=== PATIENT | male | born 1950 | race Caucasian/White ===

== ENCOUNTER → 2019-07-25 09:25 | Outpatient (CLI) | payer MEDICARE, SELFPAY ==
[2019-07-25 10:16] LABS: Add Manual Diff / Slide Review NO; Basophils Absolute Auto 0 /uL (0-100); Basophils Percent Auto 0.6 % (0-2); Eosinophils Absolute Auto 100 /uL (0-450); Eosinophils Percent Auto 1.4 % (2-4); Hematocrit 42.5 % (41-53); Hemoglobin 14.4 g/dL (13.5-17.5); Lymphocytes Absolute Auto 1500 /uL (1100-4500); Lymphocytes Percent Auto 26.2 % (25-40); Mean Corpuscular HGB Conc 33.9 % (30-36); Mean Corpuscular Hemoglobin 31.5 PG (26-34); Mean Corpuscular Volume 92.9 fL (80-100); Monocytes Absolute Auto 500 /uL (0-900); Monocytes Percent Auto 8.9 % (3-14); Neutrophils Absolute Auto 3600 /uL (1500-7000); Neutrophils Percent Auto 62.9 % (50-75); Platelet Count 206 X10^3/uL (150-400); Red Blood Cell Count 4.57 X10^6/uL (4.5-5.9); Red Cell Distribution Width 12.8 % (11.6-14.8); White Blood Cell Count 5.7 X10^3/uL (4.5-11.0)
[2019-07-25 10:25] LABS: Hemoglobin A1C% w Est Avg Glu 5.5 % (4.0-6.0)
[2019-07-25 10:36] LABS: Alanine Aminotransferase 33 IU/L (<50); Albumin 4.9 g/dL (3.5-5.0); Albumin Globulin Ratio 1.5 (1.0-2.8); Alkaline Phosphatase 72 U/L (38-126); Aspartate Aminotransferase 31 IU/L (17-59); BUN Creatinine Ratio 21.7 (6-22); Bilirubin Total 1.1 mg/dL (0.2-1.3); Blood Urea Nitrogen 26 mg/dL (9-20); Carbon Dioxide 29 mmol/L (22-32); Chloride 102 mmol/L (98-107); Cholesterol 212 mg/dL (140-199); Estimated Glomerular Filt Rate > 60.0 mL/min (>60); Globulin 3.2 g/dL (1.7-4.1); Glucose 111 mg/dL (80-110); HDL Cholesterol 43 mg/dL (40-60); HEMOLYSIS < 15 (0-50); LDL Cholesterol Calculated 123 mg/dL (<100); Potassium 4.7 mmol/L (3.4-5.1); Sodium 140 mmol/L (137-145); Total Protein 8.1 g/dL (6.3-8.2); Triglycerides 231 mg/dL (35-150)
[2019-07-25 11:04] LABS: Prostate Specific Antigen Scrn 2.58 ng/mL (0.1-4.0)
== END ==
PROVIDERS: PCP Family Medicine; Visit Provider Family Medicine
DX: Z12.5 Encounter for screening for malignant neoplasm of prostate (principal); Z76.89 Persons encountering health services in other specified circumstances
CPT/HCPCS: 36415; 80053; 80061; 83036; 85025; G0103

== ENCOUNTER → 2020-04-23 14:51 | Outpatient (CLI) | payer MEDICARE, SELFPAY ==
--- NOTE | 2020-04-23 14:53 | DI.RAD.S_ITS ---
PROCEDURE: XR SHOULDER RT MIN 2V INDICATIONS: Right shoulder pain no trauma TECHNIQUE: 3 views of the shoulder were acquired. COMPARISON: None. FINDINGS: Bones: Moderate acromioclavicular joint osteoarthritic changes are seen. No fractures or dislocations. No suspicious bony lesions. Visualized ribs appear intact. Soft tissues: No suspicious soft tissue calcifications. IMPRESSION: Moderate acromioclavicular joint osteoarthritis. No fracture or dislocation. Dictated by: Missael Garcia M.D. on 04/23/2020 at 15:37 Approved by: Missael Garcia M.D. on 04/23/2020 at 15:37
== END ==
PROVIDERS: PCP Family Medicine; Referring Provider Family Medicine; Visit Provider Family Medicine
DX: S43.401A Unspecified sprain of right shoulder joint, initial encounter (principal); M25.511 Pain in right shoulder; M19.011 Primary osteoarthritis, right shoulder
CPT/HCPCS: 73030

== ENCOUNTER → 2020-04-25 07:34 | Outpatient (CLI) | payer MEDICARE, SELFPAY ==
--- NOTE | 2020-04-25 07:34 | DI.MRI.S_ITS ---
PROCEDURE: MR SHOULDER RT WO CON INDICATIONS: Shoulder pain and reduced ROM TECHNIQUE: Noncontrast T1 spin echo and T2 fast spin echo with fat saturation through the shoulder. Patient was unable to tolerate further imaging. COMPARISON: [facility], CR, XR SHOULDER RT MIN 2V, 04/23/2020, 13:51. FINDINGS: Image quality: Excellent. Rotator cuff: Limited evaluation of rotator cuff tendons and muscles shows no definite full-thickness rotator cuff tendon rupture or significant muscle atrophy. Distal supraspinatus tendinosis and low-grade partial-thickness tear is likely present at its insertion on the humeral head. Bones and bursae: No bone marrow contusions or fractures. There is no marrow edema. No fracture or dislocation. Acromioclavicular joint and glenohumeral joint osteoarthritic changes are seen. No significant joint effusion. Capsule and soft tissues: In the absence of intra-articular contrast, there is suggestion of signal abnormality and contour irregularity involving posterior superior labrum with suggestion of adjacent perilabral cyst measures 1.3 x 1.1 cm in size. IMPRESSION: 1. Markedly limited study as above. 2. Suggestion of posterior superior right shoulder labral tear with adjacent 1.3 x 1.1 cm perilabral cyst. 3. No definite full-thickness rotator cuff tendon rupture or significant muscle atrophy. Suggestion of distal supraspinatus tendinosis and low-grade partial-thickness tear. 4. Mild to moderate acromioclavicular joint and glenohumeral joint osteoarthritis. Dictated by: Missael Garcia M.D. on 04/25/2020 at 8:37 Approved by: Missael Garcia M.D. on 04/25/2020 at 8:42
== END ==
PROVIDERS: PCP Family Medicine; Referring Provider Family Medicine; Visit Provider Family Medicine
DX: S43.401A Unspecified sprain of right shoulder joint, initial encounter (principal); M25.511 Pain in right shoulder; M19.011 Primary osteoarthritis, right shoulder
CPT/HCPCS: 73221

== ENCOUNTER → 2020-08-15 15:03 | Outpatient (CLI) | payer MEDICARE, SELFPAY ==
[2020-08-15] MEDS: COVID-19 VACC #1, MRNA(MOD) 100 MCG/0.5 ML VIAL IM (15:10)
== END ==
PROVIDERS: PCP Family Medicine; Visit Provider Internal Medicine
DX: Z23 Encounter for immunization (principal)
CPT/HCPCS: 0011A; 91301

== ENCOUNTER → 2020-09-12 14:14 | Outpatient (CLI) | payer MEDICARE, SELFPAY ==
[2020-09-12] MEDS: COVID-19 VACC #2, MRNA(MOD) 100 MCG/0.5 ML VIAL IM (14:26)
== END ==
PROVIDERS: PCP Family Medicine; Visit Provider Internal Medicine
DX: Z23 Encounter for immunization (principal)
CPT/HCPCS: 0012A; 91301

== ENCOUNTER → 2020-09-21 06:54 | Outpatient (CLI) | payer MEDICARE, SELFPAY ==
[2020-09-21 08:41] LABS: Add Manual Diff / Slide Review NO; Basophils Absolute Auto 0 /uL (0-100); Basophils Percent Auto 0.8 % (0-2); Eosinophils Absolute Auto 200 /uL (0-450); Hematocrit 40.8 % (41-53); Hemoglobin 13.5 g/dL (13.5-17.5); Lymphocytes Absolute Auto 1600 /uL (1100-4500); Lymphocytes Percent Auto 31.9 % (25-40); Mean Corpuscular HGB Conc 33.2 % (30-36); Mean Corpuscular Volume 93.6 fL (80-100); Monocytes Absolute Auto 400 /uL (0-900); Monocytes Percent Auto 8.5 % (3-14); Neutrophils Absolute Auto 2800 /uL (1500-7000); Neutrophils Percent Auto 54.8 % (50-75); Platelet Count 170 X10^3/uL (150-400); Red Blood Cell Count 4.36 X10^6/uL (4.5-5.9); Red Cell Distribution Width 13.7 % (11.6-14.8); White Blood Cell Count 5.2 X10^3/uL (4.5-11.0)
[2020-09-21 09:24] LABS: Alanine Aminotransferase 40 IU/L (<50); Albumin 4.3 g/dL (3.5-5.0); Albumin Globulin Ratio 1.5 (1.0-2.8); Alkaline Phosphatase 69 U/L (38-126); Aspartate Aminotransferase 34 IU/L (17-59); BUN Creatinine Ratio 22.6 (6-22); Bilirubin Total 0.8 mg/dL (0.2-1.3); Blood Urea Nitrogen 28 mg/dL (9-20); Calcium 9.6 mg/dL (8.4-10.2); Carbon Dioxide 24 mmol/L (22-32); Chloride 108 mmol/L (98-107); Cholesterol 141 mg/dL (140-199); Globulin 2.8 g/dL (1.7-4.1); Glucose 109 mg/dL (80-110); HDL Cholesterol 43 mg/dL (40-60); HEMOLYSIS < 15 (0-50); LDL Cholesterol Calculated 78 mg/dL (<100); Potassium 4.6 mmol/L (3.4-5.1); Sodium 140 mmol/L (137-145); Total Protein 7.1 g/dL (6.3-8.2); Triglycerides 102 mg/dL (35-150)
== END ==
PROVIDERS: PCP Family Medicine; Referring Provider Family Medicine; Visit Provider Family Medicine
DX: Z12.5 Encounter for screening for malignant neoplasm of prostate (principal); E78.5 Hyperlipidemia, unspecified; I10 Essential (primary) hypertension
CPT/HCPCS: 36415; 80053; 80061; 85025; G0103

== ENCOUNTER → 2020-10-18 10:26 | Outpatient (CLI) | payer MEDICARE, SELFPAY ==
[2020-10-18 11:24] LABS: Add Manual Diff / Slide Review NO; Basophils Absolute Auto 0 /uL (0-100); Basophils Percent Auto 0.5 % (0-2); Eosinophils Absolute Auto 100 /uL (0-450); Eosinophils Percent Auto 2.1 % (2-4); Hemoglobin 13.7 g/dL (13.5-17.5); Lymphocytes Absolute Auto 1800 /uL (1100-4500); Lymphocytes Percent Auto 27.7 % (25-40); Mean Corpuscular HGB Conc 33.3 % (30-36); Mean Corpuscular Hemoglobin 31.2 PG (26-34); Mean Corpuscular Volume 93.7 fL (80-100); Monocytes Absolute Auto 600 /uL (0-900); Monocytes Percent Auto 8.7 % (3-14); Neutrophils Absolute Auto 4000 /uL (1500-7000); Platelet Count 153 X10^3/uL (150-400); Red Blood Cell Count 4.37 X10^6/uL (4.5-5.9); Red Cell Distribution Width 13.3 % (11.6-14.8); White Blood Cell Count 6.5 X10^3/uL (4.5-11.0)
[2020-10-18 12:09] LABS: TSH w/ Reflex to FT4 2.79 uIU/mL (0.47-4.68)
== END ==
PROVIDERS: PCP Family Medicine; Referring Provider Internal Medicine Cardiovascular Disease; Visit Provider Internal Medicine Cardiovascular Disease
DX: I48.19 Other persistent atrial fibrillation (principal)
CPT/HCPCS: 36415; 84443; 85025

== ENCOUNTER → 2020-10-22 08:58 | Outpatient (CLI) | payer MEDICARE, SELFPAY ==
--- NOTE | 2020-10-22 09:01 | DI.ECHO.S_ITS ---
[facility]---------+ [facility] +---------+ : : [address] : [address] : : : : [id number] : : : : Phone: [phone]---------+ Echocardiogram Report + + :Name: BOBBY SHAW Study Date: 10/22/2020 Height: 74 in : :[facility] ReadingLocation: Weight: 300 lb : : Gender: Male BSA: 2.6 m2 : :: 1950 Age: 70 yrs BP: 136/84 mmHg: :Reason For Study: Atrial fibrillation : :Ordering Physician: : :JR FRAGOSO Performed By: Zach Woods : :Referring: JR FRAGOSO : + + Interpretation Summary 1) Borderline enlarged left ventricle with severely reduced systolic function (EF 25-30%). 2) Mildly enlarged right ventricle with mildly reduced function. 3) No significant valvular abnormalities. 4) No prior Echo available for comparison. Procedure: A two-dimensional transthoracic echocardiogram with color flow and Doppler was performed. The study quality was technically good. There is no prior echocardiogram noted for this patient. The patient was in atrial fibrillation with heart rates between 81-139 bpm during the exam. Left Ventricle: The left ventricle is borderline dilated. Left ventricular systolic function is severely reduced. The ejection fraction is estimated to be 25-30%. There is severe global hypokinesis of the left ventricle. Diastolic function could not be accurately assessed due to atrial fibrillation. Right Ventricle: The right ventricle is mildly dilated. Right ventricular systolic function is mildly reduced. Atria: Both atria are moderately dilated. There is no Doppler evidence for an interatrial shunt. Mitral Valve: There is mild mitral annular calcification. There is mild mitral regurgitation. Aortic Valve: The aortic valve is normal in structure and function. There is no aortic valve stenosis. No aortic regurgitation is present. Tricuspid Valve: The tricuspid valve is normal in structure and function. There is trace tricuspid regurgitation. The right ventricular systolic pressure is estimated to be at least 27 mmHg based on an estimated right atrial pressure of 8 mm Hg. Pulmonic Valve: The pulmonic valve is not well visualized. There is no pulmonic valvular regurgitation. Great Vessels: The aortic root is normal size. The dimensions of the ascending aorta are normal. The IVC is dilated (diameter is greater than 2.1 cm) yet it collapses greater than 50% with a sniff. This suggests a right atrial pressure of 8 mm Hg. Pericardium/ Pleura There is no pericardial effusion. There is no pleural effusion. MMode/2D Measurements & Calculations LVIDd: 5.9 cm LVOT diam: 2.4 cm LVIDs: 5.1 cm Ao root diam: 3.5 cm FS: 14.4 % asc Aorta Diam: 3.6 cm IVSd: 0.89 cm LVPWd: 0.70 cm LV frias. diameter/BSA (cm/m^2): 2.3 LV sys. diameter/BSA (cm/m^2): 2.0 LA A2 area: 23.6 cm2 RA area: 21.5 cm2 LA A4 area: 30.4 cm2 IVC diam: 2.5 cm LA length (vol): 6.6 cm LA vol: 92.6 ml LA vol index: 35.9 ml/m2 RVD1 (basal): 3.9 cm TAPSE: 1.5 cm Doppler Measurements & Calculations Ao V2 max: 126.9 cm/sec LVOT Max Robb: 94.6 cm/sec Ao V2 mean: 102.4 cm/sec LV V1 max P.6 mmHg Ao max P.4 mmHg LV V1 VTI: 19.2 cm Ao mean P.5 mmHg DAREN(I,D): 3.5 cm2 Ao V2 VTI: 25.5 cm DAREN(V,D): 3.5 cm2 sev ratio: 0.75 DAREN indexed to BSA (cm^2/m^2): 1.4 TR max robb: 215.9 cm/sec SV(LVOT): 89.7 ml TR max P.7 mmHg PA V2 max: 118.7 cm/sec PA V2 mean: 82.3 cm/sec PA mean P.0 mmHg PA pr(Accel): 43.7 mmHg Reading Physician:06:59 PM
== END ==
PROVIDERS: PCP Family Medicine; Referring Provider Family Medicine; Visit Provider Family Medicine
DX: I10 Essential (primary) hypertension (principal); I48.91 Unspecified atrial fibrillation; I51.7 Cardiomegaly
CPT/HCPCS: 93306

== ENCOUNTER → 2021-05-13 13:19 | Outpatient (CLI) | payer MEDICARE, SELFPAY ==
--- NOTE | 2021-05-13 | DI.ECHO.S_ITS ---
[facility]---------+ [facility] +---------+ : : [address] : : : : [place] [address] : : : : [id number] : : : : Phone: [phone] +---------+ Echocardiogram Report + + :Name: BOBBY SHAW Study Date: 05/13/2021 Height: 74 in : :[facility] ReadingLocation: Weight: 300 lb : : Gender: Male BSA: 2.6 m2 : :: 1950 Age: 70 yrs BP: 132/89 mmHg: :Reason For Study: SYSTOLIC HEART FAILURE : :Ordering Physician: TONA, : :KERLINE Performed By: Kaylan Ang : :Referring: KERLINE HAAS : + + Interpretation Summary 1) Mildly enlarged left ventricle with mildly reduced systolic function (EF 45-50%). 2) Mildly enlarged right ventricle with normal function. 3) No significant valvular abnormalities. 4) Compared to the Echo done 10/22/2020, LVEF has improved significantly from 25-30% to 45-50% on this study. Procedure: A two-dimensional transthoracic echocardiogram with color flow and Doppler was performed. The study quality was technically adequate. Comparison is made with the echocardiogram of 10/22/2020. The patient was in sinus bradycardia with heart rates between 50-52 bpm during the exam. Left Ventricle: The left ventricle is mildly dilated. There is normal left ventricular wall thickness. Left ventricular systolic function is mildly reduced. The ejection fraction is estimated to be 45-50%. There is mild global hypokinesis of the left ventricle. Right Ventricle: The right ventricle is mildly dilated. The right ventricular systolic function is normal. Atria: The left atrium is moderately dilated. Right atrial size is normal. There is no Doppler evidence for an interatrial shunt. Mitral Valve: The mitral valve is normal in structure and function. There is mild mitral annular calcification. There is no mitral regurgitation noted. Aortic Valve: The aortic valve is trileaflet. The aortic valve opens well. There is no aortic valve stenosis. No aortic regurgitation is present. Tricuspid Valve: The tricuspid valve is normal in structure and function. There is trace tricuspid regurgitation. Pulmonary artery pressures cannot be estimated because of the lack of a measurable TR jet velocity but the IVC suggests a CVP of around 3 mmHg. Pulmonic Valve: The pulmonic valve leaflets are thin and pliable; valve motion is normal. There is trace pulmonic regurgitation. Great Vessels: The aortic root is normal size. The ascending aorta is at the upper limits of normal in size. The IVC is of normal diameter and collapses greater than 50% with a sniff. This suggests a low right atrial pressure of 3 mm Hg. Pericardium/ Pleura There is no pericardial effusion. There is no pleural effusion. MMode/2D Measurements & Calculations LVIDd: 6.4 cm LVOT diam: 2.3 cm LVIDs: 4.9 cm Ao root diam: 3.9 cm FS: 24.7 % asc Aorta Diam: 3.8 cm IVSd: 0.80 cm Ao Arch Diam (Prox Trans): 3.7 cm LVPWd: 0.93 cm LV frias. diameter/BSA (cm/m^2): 2.5 LV sys. diameter/BSA (cm/m^2): 1.9 LA A2 area: 33.4 cm2 RA long axis: 5.4 cm LA A4 area: 28.7 cm2 RA area: 21.0 cm2 LA length (vol): 6.9 cm RA vol: 69.8 ml LA vol: 117.7 ml RA : 27.0 ml/m2 LA vol index: 45.6 ml/m2 IVC diam: 1.5 cm RVD1 (basal): 4.1 cm TAPSE: 2.5 cm Doppler Measurements & Calculations Ao V2 max: 174.5 cm/sec LVOT Max Robb: 75.1 cm/sec Ao V2 mean: 125.4 cm/sec LV V1 max P.3 mmHg Ao max P.2 mmHg LV V1 VTI: 20.1 cm Ao mean P.7 mmHg DAREN(I,D): 2.1 cm2 Ao V2 VTI: 41.5 cm DAREN(V,D): 1.9 cm2 sev ratio: 0.48 DAREN indexed to BSA (cm^2/m^2): 0.81 MV E max robb: 51.6 cm/sec PA V2 max: 121.0 cm/sec MV A max robb: 90.2 cm/sec PA V2 mean: 84.1 cm/sec MV E/A: 0.57 PA mean P.0 mmHg Med Peak E' Robb: 5.4 cm/sec PA pr(Accel): 49.9 mmHg E/E' med: 9.5 Lat Peak E' Robb: 8.2 cm/sec E/E' lat: 6.3 E/e' average: 7.9 MV dec time: 0.34 sec SV(LVOT): 87.1 ml Reading Physician:03:20 PM
== END ==
PROVIDERS: PCP Family Medicine; Referring Provider Internal Medicine Cardiovascular Disease; Visit Provider Internal Medicine Cardiovascular Disease
DX: I50.20 Unspecified systolic (congestive) heart failure (principal)
CPT/HCPCS: 93306

== ENCOUNTER → 2021-07-01 08:04 | Outpatient (CLI) | payer MEDICARE, SELFPAY ==
[2021-07-01 12:21] LABS: COVID19 -Nasal RAPID Negative (Negative)
== END ==
PROVIDERS: PCP Family Medicine; Visit Provider Nurse Practitioner Family
DX: Z20.822 Contact with and (suspected) exposure to COVID-19 (principal)
CPT/HCPCS: 87635; C9803

== ENCOUNTER → 2021-07-02 09:51 | Outpatient (CLI) | payer MEDICARE, SELFPAY ==
--- NOTE | 2021-07-02 | DI.NM.S_ITS ---
PROCEDURE: NM LAZARO PERF SPECT R&S PHARM Rest and pharmacological stress myocardial perfusion SPECT with gated imaging and ejection fraction RADIOPHARMACEUTICAL: 25.8 mCi Tc-99m tetrafosmin IV at rest and 25.2 mCi Tc-99m tetrafosmin IV at peak effect of pharmacological stress. Nty-rlc-zskwsbsf was performed. INDICATIONS: Unspecified systolic (congestive) heart failure TECHNIQUE: Radiopharmaceutical was injected at peak stress test, and also at rest. SPECT images were obtained. SPECT myocardial perfusion images were displayed in short axis, horizontal long axis, and vertical long axis views. Gated images were reviewed using Neitui software. COMPARISON: None. CARDIAC STRESS: A pharmacologic stress test was performed under the supervision of an attending staff, using an infusion of lexiscan 0.4mg IV X. Hemodynamic data: There is normal blood pressure and heart rate response to pharmacologic stress. Symptoms: The patient denied anginal chest pain. Aminophylline: none EKG: Sinus rhythm with non-specific ST changes at rest. No diagnostic changes of ischemia with lexiscan; no ectopy. FINDINGS: Raw data: There is good myocardial uptake of radiotracer. No significant motion artifacts. Uldl-oz-zkjmj ratio is 0.36 (normal is less than 0.38 for tetrafosmin tracer). Left ventricle function: Gated images demonstrate normal left ventricular wall thickening. No segmental wall motion abnormalities. No transient ischemic dilation; TID is 0.98 (normal less than 1.3). Left ventricle resting end diastolic volume is 160 mL. Left ventricle stress ejection fraction is 66%; normal range is above 45%. Myocardial perfusion: Mild distal anterior wall defect at rest that improves with stress and resolves with prone imaging, suggesting artifact. No ischemia or infarction. IMPRESSION: Low risk, probably normal pharmaceutical stress test 1) No perfusion evidence of ischemia or infarction. 2) Enlarged left ventricle (LVEDV 160cc) with normal wall motion and normal systolic function (EF post stress 66%). 3) No ECG evidence of ischemia with stress. 4) No angina during the study. 5) Reduced exercise capacity (5.4 METs). Since the patient is on metoprolol and target heart rate not reached, study switched to pharmaceutical nuclear stress test. Dictated by: Jj Haas MD on 07/03/2021 at 16:46 Approved by: Jj Haas MD on 07/03/2021 at 16:50
== END ==
PROVIDERS: PCP Family Medicine; Referring Provider Internal Medicine Cardiovascular Disease; Visit Provider Internal Medicine Cardiovascular Disease
DX: I50.20 Unspecified systolic (congestive) heart failure (principal)
CPT/HCPCS: 78452; 93017; A9502; J2785

== ENCOUNTER → 2021-08-12 08:39 | Outpatient (CLI) | payer MEDICARE, SELFPAY ==
[2021-08-12 09:08] LABS: Add Manual Diff / Slide Review NO; Basophils Absolute Auto 0 /uL (0-100); Basophils Percent Auto 0.6 % (0-2); Eosinophils Absolute Auto 200 /uL (0-450); Eosinophils Percent Auto 3.1 % (2-4); Hematocrit 37.9 % (41-53); Hemoglobin 12.7 g/dL (13.5-17.5); Lymphocytes Absolute Auto 1400 /uL (1100-4500); Lymphocytes Percent Auto 24.6 % (25-40); Mean Corpuscular HGB Conc 33.6 % (30-36); Mean Corpuscular Hemoglobin 31.6 PG (26-34); Mean Corpuscular Volume 94.2 fL (80-100); Monocytes Absolute Auto 500 /uL (0-900); Monocytes Percent Auto 9.5 % (3-14); Neutrophils Absolute Auto 3600 /uL (1500-7000); Neutrophils Percent Auto 62.2 % (50-75); Platelet Count 168 X10^3/uL (150-400); Red Blood Cell Count 4.02 X10^6/uL (4.5-5.9); Red Cell Distribution Width 12.9 % (11.6-14.8); White Blood Cell Count 5.8 X10^3/uL (4.5-11.0)
[2021-08-12 09:19] LABS: BUN Creatinine Ratio 20.9 (6-22); Blood Urea Nitrogen 32 mg/dL (9-20); Calcium 9.6 mg/dL (8.4-10.2); Carbon Dioxide 24 mmol/L (22-32); Chloride 108 mmol/L (98-107); Cholesterol 175 mg/dL (140-199); Estimated Glomerular Filt Rate 45.4 mL/min (>60); Glucose 110 mg/dL (80-110); HDL Cholesterol 49 mg/dL (40-60); HEMOLYSIS < 15 (0-50); LDL Cholesterol Calculated 93 mg/dL (<100); Sodium 139 mmol/L (137-145); Triglycerides 167 mg/dL (35-150)
== END ==
PROVIDERS: PCP Family Medicine; Referring Provider Internal Medicine Cardiovascular Disease; Visit Provider Internal Medicine Cardiovascular Disease
DX: E78.5 Hyperlipidemia, unspecified (principal); I10 Essential (primary) hypertension; Z79.01 Long term (current) use of anticoagulants
CPT/HCPCS: 36415; 80048; 80061; 85025

== ENCOUNTER → 2021-08-15 14:23 | Outpatient (CLI) | payer MEDICARE, SELFPAY ==
--- NOTE | 2021-08-15 | DI.CT.S_ITS ---
PROCEDURE: CT ANGIO CHEST INDICATIONS: Other persistent atrial fibrillation TECHNIQUE: After the administration of intravenous contrast, 3 mm thick sections acquired from the pulmonary apices to the posterior costophrenic angles. 3-dimensional maximum intensity projection (MIP) coronal reformats were then acquired parallel to the pulmonary veins. For radiation dose reduction, the following was used: automated exposure control, adjustment of mA and/or kV according to patient size. COMPARISON: None. FINDINGS: Image quality: Excellent. Pulmonary veins: 2 right and 2 left pulmonary veins are identified. * Right superior pulmonary vein: 2.1 cm diameter, 0.9 cm from ostium to 1st order branch. * Right inferior pulmonary vein: 2.3 cm diameter, 0.6 cm from ostium to 1st order branch. * Left superior pulmonary vein: 2.4 cm diameter, 6.0 cm from ostium to 1st order branch. * Left inferior pulmonary vein: 2.4 cm diameter, 3.5 cm from ostium to 1st order branch. * Supernumerary pulmonary veins: none. Lungs and pleura: No evidence of pneumonia or edema. Mild bibasilar pulmonary scarring. No pleural effusions or pneumothorax. Central and peripheral airways are patent. Mediastinum: Heart size is normal, without pericardial effusion. There is mild calcification of the coronary vasculature. No mediastinal or hilar adenopathy. Thoracic aorta and pulmonary arteries are normal in caliber and enhancement. Esophagus is normal in caliber, without hiatal hernia. Bones and chest wall: No suspicious bony lesions. Ribs and thoracic spine appear intact throughout. No axillary or supraclavicular adenopathy. Thyroid gland is within normal limits . Abdomen: Visualized upper abdominal solid organs appear normal in the early arterial phase of enhancement. IMPRESSION: 1. Conventional pulmonary venous anatomy. 2. Coronary artery disease. Dictated by: Kingsley Stanley M.D. on 08/15/2021 at 15:34 Approved by: Kingsley Stanley M.D. on 08/15/2021 at 17:00
== END ==
PROVIDERS: PCP Family Medicine; Referring Provider Physician Assistant; Visit Provider Physician Assistant
DX: I48.19 Other persistent atrial fibrillation (principal); I25.10 Atherosclerotic heart disease of native coronary artery without angina pectoris
CPT/HCPCS: 71275; Q9967

== ENCOUNTER → 2021-09-02 07:05 | Outpatient (CLI) | payer MEDICARE, SELFPAY ==
[2021-09-02 08:42] LABS: BUN Creatinine Ratio 21.4 (6-22); Blood Urea Nitrogen 31 mg/dL (9-20); Calcium 9.4 mg/dL (8.4-10.2); Carbon Dioxide 22 mmol/L (22-32); Chloride 113 mmol/L (98-107); Estimated Glomerular Filt Rate 48.3 mL/min (>60); Glucose 110 mg/dL (80-110); HEMOLYSIS < 15 (0-50); Potassium 4.6 mmol/L (3.4-5.1); Sodium 141 mmol/L (137-145)
== END ==
PROVIDERS: PCP Family Medicine; Referring Provider Internal Medicine Cardiovascular Disease; Visit Provider Internal Medicine Cardiovascular Disease
DX: I10 Essential (primary) hypertension (principal)
CPT/HCPCS: 36415; 80048

== ENCOUNTER → 2021-10-07 07:14 | Outpatient (CLI) | payer MEDICARE, SELFPAY ==
[2021-10-07 08:58] LABS: Hemoglobin A1C% w Est Avg Glu 5.9 % (4.0-6.0)
[2021-10-07 09:17] LABS: Alanine Aminotransferase 35 IU/L (<50); Albumin Globulin Ratio 1.4 (1.0-2.8); Alkaline Phosphatase 71 U/L (38-126); Aspartate Aminotransferase 29 IU/L (17-59); BUN Creatinine Ratio 18.2 (6-22); Blood Urea Nitrogen 26 mg/dL (9-20); Calcium 9.4 mg/dL (8.4-10.2); Carbon Dioxide 24 mmol/L (22-32); Chloride 112 mmol/L (98-107); Cholesterol 150 mg/dL (140-199); Estimated Glomerular Filt Rate 48.9 mL/min (>60); Globulin 2.8 g/dL (1.7-4.1); Glucose 107 mg/dL (80-110); HDL Cholesterol 39 mg/dL (40-60); HEMOLYSIS < 15 (0-50); LDL Cholesterol Calculated 74 mg/dL (<100); Potassium 4.6 mmol/L (3.4-5.1); Sodium 142 mmol/L (137-145); Total Protein 6.8 g/dL (6.3-8.2); Triglycerides 184 mg/dL (35-150)
== END ==
PROVIDERS: PCP Family Medicine; Referring Provider Family Medicine; Visit Provider Family Medicine
DX: I48.20 Chronic atrial fibrillation, unspecified (principal); I10 Essential (primary) hypertension; N28.9 Disorder of kidney and ureter, unspecified
CPT/HCPCS: 36415; 80053; 80061; 83036

== ENCOUNTER → 2021-11-27 07:14 | Outpatient (CLI) | payer MEDICARE, SELFPAY ==
[2021-11-27 09:05] LABS: BUN Creatinine Ratio 18.1 (6-22); Blood Urea Nitrogen 26 mg/dL (9-20); Calcium 9.1 mg/dL (8.4-10.2); Carbon Dioxide 24 mmol/L (22-32); Chloride 109 mmol/L (98-107); Estimated Glomerular Filt Rate 52 mL/min (>60); Glucose 106 mg/dL (80-110); HEMOLYSIS < 15 (0-50); Potassium 4.6 mmol/L (3.4-5.1); Sodium 139 mmol/L (137-145)
== END ==
PROVIDERS: PCP Family Medicine; Referring Provider Physician Assistant Medical; Visit Provider Physician Assistant Medical
DX: I48.19 Other persistent atrial fibrillation (principal)
CPT/HCPCS: 36415; 80048

== ENCOUNTER → 2022-06-05 07:16 | Outpatient (CLI) | payer MEDICARE, SELFPAY ==
[2022-06-05 10:02] LABS: BUN Creatinine Ratio 25.1 (6-22); Blood Urea Nitrogen 43 mg/dL (9-20); Calcium 9.4 mg/dL (8.4-10.2); Carbon Dioxide 21 mmol/L (22-32); Chloride 107 mmol/L (98-107); Estimated Glomerular Filt Rate 43 mL/min (>60); Glucose 101 mg/dL (80-110); HEMOLYSIS < 15 (0-50); Sodium 139 mmol/L (137-145)
== END ==
PROVIDERS: PCP Family Medicine; Referring Provider Physician Assistant Medical; Visit Provider Physician Assistant Medical
DX: I48.19 Other persistent atrial fibrillation (principal)
CPT/HCPCS: 36415; 80048

== ENCOUNTER → 2022-08-25 07:15 | Outpatient (CLI) | payer MEDICARE, SELFPAY ==
[2022-08-25 08:34] LABS: Hemoglobin A1C% w Est Avg Glu 5.8 % (4.0-6.0)
[2022-08-25 08:59] LABS: Alanine Aminotransferase 38 IU/L (<50); Albumin 4.1 g/dL (3.5-5.0); Albumin Globulin Ratio 1.4 (1.0-2.8); Alkaline Phosphatase 78 U/L (38-126); Aspartate Aminotransferase 27 IU/L (17-59); BUN Creatinine Ratio 17.2 (6-22); Blood Urea Nitrogen 23 mg/dL (9-20); Calcium 9.2 mg/dL (8.4-10.2); Carbon Dioxide 23 mmol/L (22-32); Chloride 106 mmol/L (98-107); Cholesterol 145 mg/dL (140-199); Estimated Glomerular Filt Rate 57 mL/min (>60); Globulin 2.9 g/dL (1.7-4.1); Glucose 102 mg/dL (80-110); HDL Cholesterol 46 mg/dL (40-60); HEMOLYSIS < 15 (0-50); LDL Cholesterol Calculated 50 mg/dL (<100); Potassium 4.7 mmol/L (3.4-5.1); Sodium 139 mmol/L (137-145); Triglycerides 244 mg/dL (35-150)
== END ==
PROVIDERS: PCP Family Medicine; Referring Provider Family Medicine; Visit Provider Family Medicine
DX: E78.5 Hyperlipidemia, unspecified (principal); I10 Essential (primary) hypertension; I48.20 Chronic atrial fibrillation, unspecified
CPT/HCPCS: 36415; 80053; 80061; 83036

== ENCOUNTER 2022-09-24 17:29 | Emergency (ER) | payer MEDICARE, SELFPAY ==
[2022-09-24] VITALS (9 sets, daily range): BP systolic 106–126; BP diastolic 56–77; PULSE 71–81; RESP 16–22; TEMP 36.9; O2SAT 94–98; BMI 37.8
--- NOTE | 2022-09-24 18:23 | ED.ALLEREA ---
HPI - Allergic Reaction General Chief complaint: Allergic Reaction Stated complaint: probable allergic reaction Time Seen by Provider: 09/24/22 18:23 Source: patient and family () Mode of arrival: Ambulatory Limitations: no limitations History of Present Illness HPI narrative: Patient is a 72-year-old male who arrives in the emergency department for what he was thinking was a possible allergic reaction to the pills that he took for his colonoscopy prep. He is just had a liquid diet for the past 24 hours. He is not been on his apixaban for the past 3 days preparing for the colonoscopy tomorrow. He took the pills earlier today. He stated that right after he took the medication did not feel right. He felt like he could not take a full deep breath. Started to have tremors and convulsions. In the triage room he was not having any chest pain or shortness of breath. At the time my initial evaluation the patient was diaphoretic. Stated he just generally did not feel very well. Is very nauseous. No shortness of breath or chest pain. is at bedside and provided HPI Related Data Home Medications Medication Instructions Recorded Confirmed amiodarone 100 mg tablet 100 mg PO DAILY 09/17/21 09/17/21 apixaban 5 mg tablet 5 mg PO BID 09/17/21 09/17/21 atorvastatin 40 mg tablet 40 mg PO DAILY 09/17/21 09/17/21 metoprolol succinate 25 mg 50 mg PO .QHS 09/17/21 09/17/21 tablet,extended release 24 hr pantoprazole 40 mg tablet,delayed 40 mg PO DAILY 09/17/21 09/17/21 release spironolactone 25 mg tablet 25 mg PO DAILY 09/17/21 09/17/21 Previous Rx's Medication Instructions Recorded lisinopril 10 mg tablet See Rx Instructions .Route 04/01/22 .COMPLEX #90 tabs sodium sul 1.479 gram-potas ch See Rx Instructions PO PER PKG DIR 08/20/22 0.188 gram-magnes sul 0.225 gram #24 tabs tablet (Sutab) Allergies Allergy/AdvReac Type Severity Reaction Status Date / Time No Known Drug Allergies Allergy Verified 09/17/21 09:36 Review of Systems Review of Systems ROS Unobtainable: All systems reviewed & are unremarkable except as noted in HPI and below Patient History Medical History Atrial fibrillation Hearing loss Hyperlipidemia Hypertension Nontraumatic type 1 superior labral txpiulsw-xy-tyvtqarxy (SLAP) tear of right shoulder Renal insufficiency Sprain of right shoulder Vision disorder Well adult exam Surgical History Anesthesia History of appendectomy (~2000) History of knee surgery (~2004) Family History (Updated 07/24/19 @ 19:48 by Mari Dean) Father Diabetes mellitus History of heart disease Hyperlipidemia Hypertension Mother Cancer Sister History of heart disease Social History Smoking Status: Former smoker second hand exposure: No alcohol intake: current (4-5+ drinks /weekly) substance use type: marijuana (Once or twice a year. ) Smoking Status: Former smoker alcohol intake frequency: holidays/special occasions only Substance Use Type: marijuana Exam Initial Vital Signs Initial Vital Signs: Vital Signs Temperature 98.4 F 09/24/22 17:51 Pulse Rate 81 09/24/22 17:51 Respiratory Rate 22 09/24/22 17:51 Blood Pressure 125/65 09/24/22 17:51 Pulse Oximetry 98 09/24/22 17:51 Oxygen Delivery Method Room Air 09/24/22 17:51 Const General: diaphoretic and ill appearing HENMT Head: normal to inspection and normocephalic Resp Effort & Inspection: normal respiratory effort Auscultation: clear to auscultation bilaterally Cardio Rate: regular rate Rhythm: regular rhythm GI Inspection: normal to inspection Palpation: soft and No tender Skin General: pallor Neuro General: patient alert, patient awake and moves all extremities Extrem General: normal to inspection and capillary refill normal Course Orders Ordered: ED Orders 09/24/22 18:25 XR chest 1V Stat Complete Blood Count AUTO DIFF Stat Comprehensive Metabolic Panel Stat Lactate (Lactic Acid) Stat Magnesium Stat Phosphorous Stat Troponin & CK Cardiac Panel Stat EKG-12 Lead Stat Discontinued Medications Sodium Chloride (Normal Saline 0.9%) 1,000 mls @ 1,000 mls/hr IV BOLUS ONE Stop: 09/24/22 19:23 Last Infusion: 09/24/22 19:50 Dose: 0 mls/hr Documented By: Admin: 09/24/22 18:50 Dose: 1,000 mls/hr Documented By: CTS Vital Signs Vital signs: Vital Signs - 8 hr 09/24/22 18:45 09/24/22 18:50 09/24/22 18:53 Pulse Rate 74 72 Respiratory Rate 16 Blood Pressure 106/77 119/58 L Pulse Oximetry 98 94 Oxygen Delivery Method Room Air 09/24/22 18:53 09/24/22 19:00 09/24/22 19:00 Pulse Rate 73 71 Respiratory Rate 16 Blood Pressure 126/60 Pulse Oximetry 95 98 Oxygen Delivery Method 09/24/22 19:30 09/24/22 19:31 09/24/22 19:31 Pulse Rate 72 73 Respiratory Rate Blood Pressure 125/58 L Pulse Oximetry 96 96 Oxygen Delivery Method 09/24/22 20:00 09/24/22 20:01 09/24/22 20:01 Pulse Rate 76 77 Respiratory Rate Blood Pressure 118/56 L Pulse Oximetry 96 96 Oxygen Delivery Method MDM - Allergic Reaction Lab Data Attestation: I reviewed the patient's lab results. 09/24/22 18:25 09/24/22 18:25 Labs: Lab Results 09/24/22 09/24/22 09/24/22 Range/Units 18:25 18:25 18:25 WBC 7.8 (4.5-11.0) X10^3/uL RBC 4.39 L (4.5-5.9) X10^6/uL Hgb 13.7 (13.5-17.5) g/dL Hct 40.7 L (41-53) % MCV 92.8 (80-100) fL MCH 31.3 (26-34) PG MCHC 33.7 (30-36) % RDW 13.5 (11.6-14.8) % Plt Count 191 (150-400) X10^3/uL Neut % (Auto) 81.7 H (50-75) % Lymph % (Auto) 16.0 L (25-40) % [place] % (Auto) 1.4 L (3-14) % Eos % (Auto) 0.6 L (2-4) % Baso % (Auto) 0.3 (0-2) % Neut # (Auto) 6400 (4080-6427) /uL Lymph # (Auto) 1300 (5116-1465) /uL [place] # (Auto) 100 (0-900) /uL Eos # (Auto) 0 (0-450) /uL Baso # (Auto) 0 (0-100) /uL Sodium 139 (137-145) mmol/L Potassium 4.8 (3.4-5.1) mmol/L Chloride 107 (98-107) mmol/L Carbon Dioxide 20 L (22-32) mmol/L BUN 27 H (9-20) mg/dL Creatinine 1.38 H (0.66-1.25) mg/dL Estimated GFR 55 L (>60) mL/min BUN/Creatinine Ratio 19.6 (6-22) Glucose 96 (80-110) mg/dL Lactate 1.9 (0.7-2.1) mmol/L Calcium 9.7 (8.4-10.2) mg/dL Phosphorus 3.2 (2.3-3.7) mg/dL Magnesium 1.9 (1.6-2.3) mg/dL Total Bilirubin 1.7 H (0.2-1.3) mg/dL AST 33 (17-59) IU/L ALT 38 (<50) IU/L Alkaline Phosphatase 87 (38-126) U/L Total Creatine Kinase 224 H (55-170) U/L CK-MB (CK-2) 2.32 (<2.37) ng/mL CK-MB (CK-2) Rel Index 1.0 L (1.5-5.0) % Troponin I < 0.012 (0.01-0.034) ng/mL Total Protein 8.0 (6.3-8.2) g/dL Albumin 4.7 (3.5-5.0) g/dL Globulin 3.3 (1.7-4.1) g/dL Albumin/Globulin Ratio 1.4 (1.0-2.8) Point of Care Testing Glucose POC 110 Imaging Data Chest x-ray: Radiologist's Impression: PROCEDURE:? XR CHEST 1V ? INDICATIONS:? chest pain ? TECHNIQUE:? One view of the chest was acquired.? ? COMPARISON:? None. ? FINDINGS:? ? Surgical changes and devices:? None.? ? Lungs and pleura:? Lungs are clear.? No pleural effusions or pneumothorax.? ? Mediastinum:? Mediastinal contours appear normal.? Heart size is enlarged. ? Bones and chest wall:? No suspicious bony lesions.? Overlying soft tissues appear unremarkable.? ? IMPRESSION:? No acute pulmonary process. ? ECG Data Attestation: I personally reviewed and interpreted this ECG as follows: Interpretation: Sinus rhythm Ventricular rate is 73 Normal axis Normal QRS Normal QTC No ST T wave changes MDM Narrative Medical decision making narrative: Upon my initial evaluation the patient looked very poor. Was diaphoretic and pale. Much of the HPI came from the patient's . It appears that all of his symptoms started after he took the pills to use for the prep for the colonoscopy. It also was revealed that the patient has not had anything to eat for the past day just liquid per the instructions in preparation for the colonoscopy. His initial blood sugar was 77. He was given oral sugar. This improved his glucose. Is given fluids. After this the patient stated that he felt much better. His color had returned to his face. Was no longer diaphoretic. Not tachycardic. Not hypotensive. His labs are unremarkable. Unsure as to whether not the patient was having a actual allergic reaction to the pills for the prep or if he was hypoglycemic because of his lack of oral intake. Either way the patient has improved clinically and stated that he felt well enough to go home. He has had a couple of loose bowel movements here in the ER which is not unexpected given the medication that he took. He is already called to cancel the colonoscopy for tomorrow which I do not think is unreasonable given his presentation today. I advised that he return to taking all of his medications as directed. Encouraged him to increase his fluid intake. He was given return precautions. He expressed understanding and agreement. Discharge Plan Departure Patient Disposition: Home Clinical Impression: Hypoglycemia Instructions: Hypoglycemia Activity Restrictions/Additional Instructions: I would recommend that you do not proceed with the colonoscopy tomorrow and contact the provider to let them know that this should be rescheduled. I am not 100% convinced that you had an allergic reaction to the medication you took for the prep but it is a possibility. Since you were not having the colonoscopy tomorrow I would recommend that you start all of your medications as directed. Return to the emergency department for new symptoms. Prescriptions: No Action lisinopril 10 mg tablet See Rx Instructions .ROUTE .COMPLEX Qty: 90 1RF Dose Instruction: TAKE ONE TABLET BY MOUTH ONE TIME DAILY. Rx Instructions: TAKE ONE TABLET BY MOUTH ONE TIME DAILY. Sutab 1.479-0.188- 0.225 gram tablet See Rx Instructions PO PER PKG DIR Qty: 24 0RF Rx Instructions: Take as directed by Physician metoprolol succinate 25 mg tablet extended release 24 hr 50 mg PO .QHS amiodarone 100 mg tablet 100 mg PO DAILY apixaban 5 mg tablet 5 mg PO BID atorvastatin 40 mg tablet 40 mg PO DAILY pantoprazole 40 mg tablet,delayed release (DR/EC) 40 mg PO DAILY spironolactone 25 mg tablet 25 mg PO DAILY Rx Instructions: Take 0.5mg tabs 12.5 mg total PO daily Referrals: Maurilio Salazar, [Primary Care Provider] - Stand Alone Forms: Patient Portal/API
--- NOTE | 2022-09-24 18:25 | DI.RAD.S_ITS ---
PROCEDURE: XR CHEST 1V INDICATIONS: chest pain TECHNIQUE: One view of the chest was acquired. COMPARISON: None. FINDINGS: Surgical changes and devices: None. Lungs and pleura: Lungs are clear. No pleural effusions or pneumothorax. Mediastinum: Mediastinal contours appear normal. Heart size is enlarged. Bones and chest wall: No suspicious bony lesions. Overlying soft tissues appear unremarkable. IMPRESSION: No acute pulmonary process. Dictated by: Apolonia Aguilar M.D. on 09/24/2022 at 19:19 Approved by: Apolonia Aguilar M.D. on 09/24/2022 at 19:19
[2022-09-24 18:33] LABS: Add Manual Diff / Slide Review NO; Basophils Absolute Auto 0 /uL (0-100); Basophils Percent Auto 0.3 % (0-2); Eosinophils Absolute Auto 0 /uL (0-450); Eosinophils Percent Auto 0.6 % (2-4); Hematocrit 40.7 % (41-53); Hemoglobin 13.7 g/dL (13.5-17.5); Lymphocytes Absolute Auto 1300 /uL (1100-4500); Mean Corpuscular HGB Conc 33.7 % (30-36); Mean Corpuscular Hemoglobin 31.3 PG (26-34); Mean Corpuscular Volume 92.8 fL (80-100); Monocytes Absolute Auto 100 /uL (0-900); Monocytes Percent Auto 1.4 % (3-14); Neutrophils Absolute Auto 6400 /uL (1500-7000); Neutrophils Percent Auto 81.7 % (50-75); Platelet Count 191 X10^3/uL (150-400); Red Blood Cell Count 4.39 X10^6/uL (4.5-5.9); Red Cell Distribution Width 13.5 % (11.6-14.8); White Blood Cell Count 7.8 X10^3/uL (4.5-11.0)
--- NOTE | 2022-09-24 18:33 | PC.NURSE ---
Pt called on red phone stating that pt was feeling dizzy and lightheaded. Pt was started on colonoscopy prep for his procedure tomorrow. states that he took one dose of his prep and started with dizziness and shakiness at home and not feeling well so she brought him in. Pt was wheeled to the [facility] and appeared to be having a syncopal episode. Eyes rolled back, diaphoretic, unresponsive to verbal x [address] Alvarez at bedside. Pt came to consciousness within 20 seconds and states he was nauseated. Glucose 77. Sugar packet given and pt transferred into stretcher. Feeling better and back to baseline. BP 106/77 HR 77 NSR 98% RA. Pt OOB with assist to bathroom for BM from colon prep. IVF started. Pt resting in bed and states hes exhausted.
[2022-09-24 18:46] LABS: Alanine Aminotransferase 38 IU/L (<50); Albumin 4.7 g/dL (3.5-5.0); Albumin Globulin Ratio 1.4 (1.0-2.8); Alkaline Phosphatase 87 U/L (38-126); Aspartate Aminotransferase 33 IU/L (17-59); BUN Creatinine Ratio 19.6 (6-22); Bilirubin Total 1.7 mg/dL (0.2-1.3); Blood Urea Nitrogen 27 mg/dL (9-20); Calcium 9.7 mg/dL (8.4-10.2); Carbon Dioxide 20 mmol/L (22-32); Chloride 107 mmol/L (98-107); Creatine Kinase 224 U/L (55-170); Estimated Glomerular Filt Rate 55 mL/min (>60); Globulin 3.3 g/dL (1.7-4.1); Glucose 96 mg/dL (80-110); HEMOLYSIS 23 (0-50); Magnesium 1.9 mg/dL (1.6-2.3); Phosphorous 3.2 mg/dL (2.3-3.7); Potassium 4.8 mmol/L (3.4-5.1); Sodium 139 mmol/L (137-145)
[2022-09-24] MEDS: SODIUM CHLORIDE 0.9% 1,000 ML 1000 ML IV (18:50)
[2022-09-24 18:57] LABS: Troponin I < 0.012 ng/mL (0.01-0.034)
[2022-09-24 19:01] LABS: Creatine Kinase MB 2.32 ng/mL (<2.37)
[2022-09-24 19:15] LABS: Lactate (Lactic Acid) 1.9 mmol/L (0.7-2.1)
--- NOTE | 2022-09-24 20:17 | PC.NURSE ---
pt ambulated around room without any c/o dizziness gait steady
== END 2022-09-24 20:19 | disposition home or self-care (01) ==
PROVIDERS: Emergency Provider Emergency Medicine; PCP Family Medicine
DX: E16.2 Hypoglycemia, unspecified (principal); R07.9 Chest pain, unspecified; Z79.899 Other long term (current) drug therapy
CPT/HCPCS: 36415; 71045; 80053; 82550; 82553; 82962; 83605; 83735; 84100; 84484; 85025; 93005; 99284

== ENCOUNTER → 2024-01-13 07:20 | Outpatient (CLI) | payer MEDICARE, SELFPAY ==
[2024-01-13 08:02] LABS: Add Manual Diff / Slide Review NO; Basophils Absolute Auto 200 /uL (0-100); Basophils Percent Auto 4.2 % (0-2); Eosinophils Absolute Auto 100 /uL (0-450); Hematocrit 40.5 % (41-53); Hemoglobin 13.7 g/dL (13.5-17.5); Lymphocytes Absolute Auto 1200 /uL (1100-4500); Mean Corpuscular HGB Conc 33.9 % (30-36); Mean Corpuscular Hemoglobin 31.8 PG (26-34); Mean Corpuscular Volume 93.7 fL (80-100); Monocytes Absolute Auto 400 /uL (0-900); Monocytes Percent Auto 7.3 % (3-14); Neutrophils Absolute Auto 3000 /uL (1500-7000); Neutrophils Percent Auto 61.5 % (50-75); Platelet Count 196 X10^3/uL (150-400); Red Blood Cell Count 4.32 X10^6/uL (4.5-5.9); Red Cell Distribution Width 13.4 % (11.6-14.8); White Blood Cell Count 4.8 X10^3/uL (4.5-11.0)
--- NOTE | 2024-01-13 08:07 | EKG_ITS ---
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
[2024-01-13 08:15] LABS: Appearance Urine UA CLEAR; Bilirubin Urine UA NEGATIVE (NEGATIVE); Color Urine UA YELLOW; Glucose Urine UA NEGATIVE (Negative); Ketones Urine UA NEGATIVE (NEGATIVE); Leukocyte Esterase Urine UA NEGATIVE (NEGATIVE); Nitrite Urine UA NEGATIVE (Negative); Occult Blood Urine UA NEGATIVE (Negative); Protein Urine UA NEGATIVE (Negative); Specific Gravity Urine UA 1.015 (1.000-1.035); Urobilinogen Urine UA 0.2 E.U./dL (0.2)
[2024-01-13 08:21] LABS: BUN Creatinine Ratio 22.5 (6-22); Blood Urea Nitrogen 27 mg/dL (9-20); Calcium 9.8 mg/dL (8.4-10.2); Carbon Dioxide 23 mmol/L (22-32); Chloride 111 mmol/L (98-107); Estimated Glomerular Filt Rate > 60 mL/min (>60); Glucose 112 mg/dL (80-110); HEMOLYSIS < 15 (0-50); Potassium 4.7 mmol/L (3.4-5.1); Sodium 138 mmol/L (137-145)
[2024-01-13 08:38] LABS: Bacteria Urine Occasional (0-1); Culture Indicated Urine Specimen Cultured; Hyaline Casts Urine 0-1/LPF; RBC Urine None Seen (0-5/HPF); Squamous Epithelial Cell Urine 5-10 /HPF (0-5/HPF); Urine Volume 10mL (spun); WBC Urine 1-5/HPF (0-5/HPF)
== END ==
LOC: RESP 07:25
PROVIDERS: PCP Family Medicine; Referring Provider Orthopaedic Surgery; Visit Provider Orthopaedic Surgery
DX: Z01.818 Encounter for other preprocedural examination (principal); R73.9 Hyperglycemia, unspecified; Z01.812 Encounter for preprocedural laboratory examination; N39.0 Urinary tract infection, site not specified
CPT/HCPCS: 36415; 80048; 81001; 83036; 85025; 87086; 93005

== ENCOUNTER → 2024-03-04 07:51 | Outpatient (CLI) | payer MEDICARE, SELFPAY ==
--- NOTE | 2024-03-04 08:24 | EKG_ITS ---
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
[2024-03-04 09:01] LABS: Add Manual Diff / Slide Review NO; Basophils Absolute Auto 0 /uL (0-100); Basophils Percent Auto 0.7 % (0-2); Eosinophils Absolute Auto 200 /uL (0-450); Eosinophils Percent Auto 3.6 % (2-4); Hematocrit 39.6 % (41-53); Hemoglobin 13.5 g/dL (13.5-17.5); Lymphocytes Absolute Auto 1500 /uL (1100-4500); Lymphocytes Percent Auto 24.5 % (25-40); Mean Corpuscular HGB Conc 34.1 % (30-36); Mean Corpuscular Hemoglobin 32.3 PG (26-34); Mean Corpuscular Volume 94.5 fL (80-100); Monocytes Absolute Auto 600 /uL (0-900); Monocytes Percent Auto 10.6 % (3-14); Neutrophils Absolute Auto 3700 /uL (1500-7000); Neutrophils Percent Auto 60.6 % (50-75); Platelet Count 171 X10^3/uL (150-400); Red Blood Cell Count 4.19 X10^6/uL (4.5-5.9); Red Cell Distribution Width 13.7 % (11.6-14.8); White Blood Cell Count 6.1 X10^3/uL (4.5-11.0)
[2024-03-04 09:02] LABS: Hemoglobin A1C% w Est Avg Glu 5.9 % (4.0-6.0)
[2024-03-04 09:08] LABS: Albumin 4.5 g/dL (3.5-5.0); BUN Creatinine Ratio 21.3 (6-22); Blood Urea Nitrogen 27 mg/dL (9-20); Calcium 9.7 mg/dL (8.4-10.2); Carbon Dioxide 21 mmol/L (22-32); Chloride 107 mmol/L (98-107); Estimated Glomerular Filt Rate > 60 mL/min (>60); Glucose 105 mg/dL (80-110); Sodium 138 mmol/L (137-145)
[2024-03-04 09:15] LABS: Prealbumin 34.7 mg/dL (17.6-36.0)
[2024-03-04 09:24] LABS: HEMOLYSIS 52 (0-50); Potassium 5.5 mmol/L (3.4-5.1)
== END ==
PROVIDERS: PCP Family Medicine; Referring Provider Orthopaedic Surgery Adult Reconstructive Orthopaedic Surgery; Visit Provider Orthopaedic Surgery Adult Reconstructive Orthopaedic Surgery
DX: Z01.818 Encounter for other preprocedural examination (principal); R77.0 Abnormality of albumin; R73.9 Hyperglycemia, unspecified; E55.9 Vitamin D deficiency, unspecified; Z01.812 Encounter for preprocedural laboratory examination
CPT/HCPCS: 36415; 80048; 82040; 82306; 83036; 84134; 85025; 93005; 93010

== ENCOUNTER → 2024-03-29 12:41 | Outpatient (CLI) | payer MEDICARE, SELFPAY ==
[2024-03-29 14:58] LABS: BUN Creatinine Ratio 18.3 (6-22); Blood Urea Nitrogen 23 mg/dL (9-20); Calcium 10.2 mg/dL (8.4-10.2); Carbon Dioxide 20 mmol/L (22-32); Chloride 109 mmol/L (98-107); Estimated Glomerular Filt Rate > 60 mL/min (>60); Glucose 96 mg/dL (80-110); HEMOLYSIS < 15 (0-50); Potassium 4.7 mmol/L (3.4-5.1); Sodium 139 mmol/L (137-145)
== END ==
PROVIDERS: PCP Family Medicine; Referring Provider Internal Medicine Cardiovascular Disease; Visit Provider Internal Medicine Cardiovascular Disease
DX: Z79.899 Other long term (current) drug therapy (principal)
CPT/HCPCS: 36415; 80048

== ENCOUNTER → 2024-04-26 06:46 | Outpatient (CLI) | payer MEDICARE, SELFPAY ==
[2024-04-26 08:42] LABS: Hematocrit 40.1 % (41-53); Hemoglobin 13.6 g/dL (13.5-17.5); Mean Corpuscular HGB Conc 33.9 % (30-36); Mean Corpuscular Hemoglobin 32.1 PG (26-34); Mean Corpuscular Volume 94.6 fL (80-100); Platelet Count 199 X10^3/uL (150-400); Red Blood Cell Count 4.24 X10^6/uL (4.5-5.9); Red Cell Distribution Width 13.7 % (11.6-14.8); White Blood Cell Count 5.8 X10^3/uL (4.5-11.0)
[2024-04-26 09:11] LABS: BUN Creatinine Ratio 20.5 (6-22); Blood Urea Nitrogen 24 mg/dL (9-20); Calcium 9.7 mg/dL (8.4-10.2); Carbon Dioxide 23 mmol/L (22-32); Chloride 107 mmol/L (98-107); Cholesterol 162 mg/dL (140-199); Estimated Glomerular Filt Rate > 60 mL/min (>60); Glucose 105 mg/dL (80-110); HDL Cholesterol 45 mg/dL (40-60); HEMOLYSIS < 15 (0-50); LDL Cholesterol Calculated 67 mg/dL (<100); Potassium 4.7 mmol/L (3.4-5.1); Sodium 137 mmol/L (137-145); Triglycerides 249 mg/dL (35-150)
== END ==
LOC: LAB 06:49
PROVIDERS: PCP Family Medicine; Referring Provider Internal Medicine Cardiovascular Disease; Visit Provider Internal Medicine Cardiovascular Disease
DX: I10 Essential (primary) hypertension (principal); Z79.01 Long term (current) use of anticoagulants; E78.5 Hyperlipidemia, unspecified
CPT/HCPCS: 36415; 80048; 80061; 85027

== ENCOUNTER 2024-06-10 06:02 | Day surgery (SDC) | payer MEDICARE, SELFPAY ==
[2024-05-30 09:08] VITALS: BMI 38.5
[2024-06-10] VITALS (14 sets, daily range): BP systolic 92–146; BP diastolic 35–79; PULSE 62–82; RESP 10–20; TEMP 35.8–37.3; O2SAT 92–98; BMI 38.5; BMI 42.7
--- NOTE | 2024-06-10 06:00 | DI.RAD.S_ITS ---
PROCEDURE: XR KNEE LT 1TO2V INDICATIONS: total left knee TECHNIQUE: 2 view(s) of the knee acquired. COMPARISON: [facility], XR KNEE 4+ VIEWS LEFT, 12/23/2023, 10:46. FINDINGS: Bones: Patient is status post knee joint arthroplasty. Hardware components are in expected positions. Visualized bony structures are intact. Soft tissues: Overlying postoperative changes are noted. IMPRESSION: Expected post-operative appearance of a knee arthroplasty. Dictated by: Reji Kimbrough M.D. on 06/10/2024 at 16:33 Approved by: Reji Kimbrough M.D. on 06/10/2024 at 16:34
[2024-06-10] MEDS: LACTATED RINGERS 1,000 ML 42 ML IV (07:08)
[2024-06-10] MEDS: ACETAMINOPHEN 325 MG TABLET 975 MG PO (07:11)
[2024-06-10] MEDS: MELOXICAM 7.5 MG TABLET 15 MG PO (07:11)
--- NOTE | 2024-06-10 07:35 | PM.PREOP ---
Pre-operative Note Interval Note History & Physical reviewed/Exam performed by Physician: Yes Changes to H&P: No
[2024-06-10] MEDS: TRANEXAMIC ACID 1,000 MG VIAL 1000 MG INJ ×2 (08:03→09:43)
[2024-06-10] MEDS: CEFAZOLIN VIAL 3 GM in SODIUM CHLORIDE 0.9% 100 ML IV ×3 (08:03→23:49)
--- NOTE | 2024-06-10 08:26 | SUR.OPER ---
Supine on padded OR bed. Pillow under head, arms secured on padded armboards <90 degree abduction. Safety belt across torso. Non-operative leg secured with tape over blanket over lower leg. Operative leg secured in DeMayo/Aleksey/Nathe positioner. Foam padded brace at thigh of operative leg.
[2024-06-10] MEDS: ROPIVACAINE/EPI/CLONIDINE/KET 50 ML SYRINGE INJ (08:38)
--- NOTE | 2024-06-10 09:46 | P.OP_ITS ---
Operative Date/Time/Diagnoses Date of procedure: 06/10/24 Pre-op diagnosis: Left knee osteoarthritis Post-op diagnosis: same Procedure & Clinicians Procedure: Left total knee arthroplasty Same procedure as scheduled: Yes Surgeon: Blair Amaya Clinical Engineering Manager: Latonia Wasserman Anesthesia Type: Spinal, Sedation, Peripheral nerve block and Local Operative Notes Estimated Blood Loss (mL): 150 Tourniquet time (min): 60 Procedure in detail: Left Gap-Balanced Sotero Persona Medial-Congruent Primary Total Knee Arthroplasty Implants: * Size 11 PPS Cruciate Retaining Femoral Component * Size H OsseoTi Tibial Component * Size 12 Medial Congruent Polyethylene Insert * Unresurfaced Patella Procedure Summary: This 73-year-old male patient is 6 ft 2 in tall and 300 lb. He has a very muscular build. 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 Given this combination of factors I strongly desired utilize uncemented fixation for his case today in order to provide him with a durable biologic plafond for his construct. As anticipated I found that his bone quality was very high intraoperatively. He had a varus deformity which balanced without the need for a release and femoral rotation was balanced at 3? of external rotation using the tensioner. I made a +6 cut on the tibia given his very large size to ensure I was able to get in appropriately sized implants without needing to recut his tibia and ended up using a 12 mm insert. Procedure in Detail: This patient was seen preoperatively and evaluated for knee pain which was refractory to numerous nonoperative treatment modalities. Their pain correlated with radiographic changes demonstrating significant degeneration in the knee joint. The risks and benefits of continued nonoperative management versus operative management were discussed at length and all of the patient?s questions were answered. Additional educational materials providing further details beyond our discussion in clinic were provided via a publicly available patient education video which included the incidence of medical complications associated with total knee arthroplasty, reasons for revision following total knee arthroplasty, and patient satisfaction rates following total knee arthroplasty. That video can be accessed at [email or web address] . With this understanding of the risks inherent to the procedure, the patient elected to move forward with operative management. Following preoperative optimization, the patient was scheduled for surgery. The patient was met in the preoperative holding area the day of the procedure and all questions were answered. The patient?s nares were swabbed with betadine in order to decolonize them from MRSA. Informed consent was signed and the left limb was marked with indelible ink.? The patient was brought back to the operating room where anesthesia was induced. The patient was transferred to the operating table and all bony prominences were padded. The operative site was prepped and draped in the usual sterile fashion. A second prep stick was utilized following drape placement. The incision was marked corresponding to the medial aspect of the tibial tubercle and the patella. Ioban was wrapped circumferentially around the knee. Prior to incision, tranexamic acid and cefazolin were administered. Templating images were displayed. A timeout procedure was performed verifying the patient?s identity, medical comorbidities, allergies, relevant medications, anesthesia type and the surgical plan. All present were in agreement. The assistance of a physician wet process assistant head miller was required for positioning, room setup, soft tissue retraction and wound closure. Without this assistance, the procedure would have been significantly more challenging and time consuming.?? The tourniquet was inflated prior to incision. I made an anterior incision over the knee, dissected through the subcutaneous tissues and identified the lateral border of the VMO. Medial and lateral soft tissue flaps were developed. A medial parapatellar arthrotomy was performed ensuring that adequate capsular tissue would remain for closure at the conclusion of the procedure. The hip was brought into extension and the medial soft tissues were released off the joint line of the tibia. Tissue overlying the distal anterior femur was released to allow for later assessment for anterior notching but left in place. A portion of the retropatellar fat pad was excised while protecting the patellar tendon. The patella was everted. The patella was not resurfaced. Osteophytes were excised and a lateral facetectomy was performed. The patella was released from its everted position.?? I flexed the knee to 90 degrees and placed retractors to allow access to the notch. An opening reamer was used to gain access to the femoral canal and an intramedullary karine was introduced into the canal. Diaphyseal fit was obtained in order to allow a distal femoral resection at 5 degrees relative to the anatomic axis, thereby aiming to achieve mechanical alignment of the eventual implant. A +2 resection was planned and assessed using an gucci wing. I then made the cut using a sagittal saw. This provided additional access to the femoral notch. The ACL and PCL were excised. Retractors were placed on the lateral and medial tibia. I hyperflexed the knee while externally rotating it to sublux the tibia anteriorly. I placed a PCL retractor posteriorly and used this to provide additional anterior subluxation. The remainder of the PCL root was released. An intramedullary reamer was used in the ACL footprint to provide access to the tibial canal. An extramedullary guide was positioned to allow a resection perpendicular to the anatomic and mechanical axes of the tibia, thereby aiming to achieve mechanical alignment of the eventual implant. A +6 resection off the medial tibia was planned and the tibial cutting jig was pinned in place. I evaluated the cut depth, varus-valgus alignment and slope of the planned tibial resection and deemed them satisfactory. I cut the tibia with a sagittal saw wh ile using retractors to protect the MCL, patellar tendon, and posterolateral structures.? The knee was repositioned in extension and the Fuzion soft tissue balancing gauge was introduced. This demonstrated that there was equal tension in the medial and lateral compartments of the knee with the knee in full extension and no additional soft tissue releases were necessary. When 60 pounds of force was applied to the Fuzion device, the extension gap opened to 12 mm. I moved the knee into 90 degrees of flexion, and the Fuzion device was recalibrated by removing a 9 mm niurka to allow assessment of the flexion gap. The Fuzion was placed perpendicular to the resected surface of the tibia and the resected surface of the distal femur. Sixty pounds of traction was applied to match the tension of the extension gap. This externally rotated the femur to degrees. Pins were placed in the 12 mm holes. The measured resection guide was placed over the pins to allow sizing. Appropriate sizing was determined and a 4-in-1 block was placed. This was double checked using the Fuzion device to ensure that it would open to an equal distance as the extension gap when the same amount of force was applied. The Fuzion block was also used to assess flexion gap symmetry. An gucci wing was used to ensure there would be no anterior notching. Retractors were placed to protect the soft tissues during resection. Captured cuts were performed with a sagittal saw for the anterior and posterior femur as well as the corresponding chamfers.? Trial components were placed and the construct was assessed. Range of motion was assessed by ensuring the knee could achieve full extension and assessing maximum passive knee flexion by elevating the femur and allowing the heel to passively fall towards the buttock. Gap symmetry was assessed by stressing the medial and lateral compartments in both extension and flexion. Laxity was assessed in both extension and flexion and the polyethylene trial was adjusted with shims as necessary. Patellar tracking was assessed with knee flexion. Once satisfied with the construct, I moved forward with implant insertion. Lug holes were drilled in the femur and the tibia was prepped ensuring appropriate sizing and rotation relative to the tibial tubercle.?? The bony ends were irrigated and cement was prepared. Portions of the anterior chamfer cut were utilized as cement restrictors in the femur and tibia where intramedullar rods had been utilized. Cement was placed on the entirety of the undersurface of both the tibial and femoral components. Cement was placed onto the dry tibia and pressurized into the cancellous bone. I impacted the tibial component into place. Cement was removed. The tibia was reduced underneath the femur and placed cement onto the dry surface of the resected femur. I placed the femoral component as well as the intended polyethylene trial. Cement was removed from around the femur. I brought the knee into extension and manually pressurized the construct by pushing on the heel while the cement dried. The knee was bathed in a dilute mixture of betadine and peroxide. A mixture of Ropivacaine, Epinephrine, Clonidine and Toradol was infiltrated throughout the soft tissues into structures including the VMO, patellar tendon, quadriceps tendon, MCL and femoral periosteum. A low adductor canal block was also performed using this mixture unless one had been placed preoperatively by anesthesia. The knee was copiously irrigated with pulse lavage. Once cement had been allowed to dry the knee was again trialed. Range of motion was assessed by ensuring the knee could achieve full extension and assessing maximum passive knee flexion by elevating the femur and allowing the heel to passively fall towards the buttock. Gap symmetry was assessed by stressing the medial and lateral compartments in both extension and flexion. Laxity was assessed in both extension and flexion and the polyethylene trial was adjusted with shims as necessary. Patellar tracking was assessed with knee flexion. The tourniquet was let down and the polyethylene trial was removed. I inspected the knee inspected for excess cement and any residual bleeding. Once hemostasis was achieved I inserted the final polyethylene and ensured appropriate engagement of the dovetail locking mechanism.?? The arthrotomy was closed with absorbable interrupted suture ensuring that this extended to the top of the arthrotomy. This was backed up with running barbed suture throughout the arthrotomy. The skin was closed with 2-0 and 3-0 sutures. Surgical glue was applied and a soft dressing was placed.?The sponge, instrument and needle counts were reported as being correct at the end of the case.??No obvious complications occurred. The patient was transferred from the operating table back to a stretcher. The patient emerged from anesthesia without difficulty and was taken to the PACU in a stable condition.? Plan for aftercare: * Weightbearing as tolerated * Mobilization as soon as the patient has recovered from anesthesia. If physical therapists are unavailable at the time the patient is ready to ambulate, then nursing staff should help patient ambulate * Baseline Eliquis for DVT prophylaxis to resume tomorrow * Nguyen incisional wound VAC * Multimodal pain regimen with no IV opioids ordered * Anticipate discharge home later today * Follow up at [facility] in 2 weeks * Detailed postoperative instructions available at [email or web address]
[2024-06-10] MEDS: LACTATED RINGERS 1,000 ML 100 ML IV (11:36)
[2024-06-10] MEDS: IBUPROFEN 600 MG TABLET PO ×3 (11:36→23:48)
[2024-06-10] MEDS: OXYCODONE IR 5 MG TABLET PO ×2 (12:02→19:07)
[2024-06-10] MEDS: ACETAMINOPHEN 325 MG TABLET 650 MG PO ×3 (13:00→23:48)
[2024-06-10] MEDS: TRAMADOL 50 MG TABLET PO ×2 (13:01→21:11)
--- NOTE | 2024-06-10 14:20 | PT.IIE ---
Current Diagnoses Unilateral primary osteoarthritis, left knee (06/10/24) Surgery Performed Operation Date: 06/10/24 07:45 Actual Procedures p Total Knee Arthroplasty(Left) - Blair Amaya MD Surgical History (Last Reviewed 06/10/24 @ 06:55 by Hollie Nevarez, RN) Anesthesia H/O cardiac radiofrequency ablation (08/28/21) H/O umbilical hernia repair History of appendectomy (~2000) History of knee surgery (~2004) Medical History (Last Reviewed 06/10/24 @ 06:55 by Hollie Nevarez, OLESYA) Atrial fibrillation Cardiac LV ejection fraction of 40-49% (05/13/21) Encounter for Medicare annual wellness exam Encounter for pre-operative cardiovascular clearance GERD (gastroesophageal reflux disease) Hearing loss HFrEF (heart failure with reduced ejection fraction) History of cardioversion History of chronic atrial fibrillation Hyperlipidemia Hypertension Left knee pain Nontraumatic type 1 superior labral ymbocfuy-hy-btkxpommf (SLAP) tear of right shoulder Obesity Osteoarthritis of left knee Paroxysmal atrial fibrillation Renal insufficiency Sprain of right shoulder Vision disorder Well adult exam Physical Therapy Inpatient Evaluation/Re-Eval M1 PT/OT-IP Prior Functional Status Start: 06/10/24 15:17 Freq: NEEDED Status: Active Protocol: Document 06/10/24 14:20 AB (Rec: 06/10/24 15:29 AB [id number]) Medical Review Prior Functional Status Medical History Reviewed Yes Communication able to make needs known Mobility and Gait pt staed that he was independent with all mobilities and ambulation without AD Social History Household Members spouse Living Arrangements House Number of Floors (Floors) Two Floors Number of Stairs To Enter/Railing? 2 steps without rails to enter ; can go towards back door but needs to walk farther/around the house has 12 steps L rail ascending to get to bedroom level Home Environment High Toilet,Walk in Shower Home Equipment Front Wheel Walker,Straight Cane Additional Social History Comment pt's son will be at home for 2 days to assist pt as well M2 PT-IP Current Condition Start: 06/10/24 15:17 Freq: NEEDED Status: Active Protocol: Document 06/10/24 14:20 AB (Rec: 06/10/24 15:29 AB [id number]) Physical Therapy Current Condition Current Condition Evaluation Date 06/10/24 Treatment Diagnosis s/p L TKA; difficulty in walking Onset Date 06/10/24 M3 PT-IP Subjective Start: 06/10/24 15:17 Freq: NEEDED Status: Active Protocol: Document 06/10/24 14:20 AB (Rec: 06/10/24 15:29 AB [id number]) Subjective Physical Therapy Visit Type Type Initial Evaluation Visit Start Time 14:20 Visit Stop Time 15:15 Number of REINFORCEMENT MAKER Visits 0 Physical Therapy Visit Comments Patient Comments agreeable to do PT Therapy Pain Assessment Pain When Pain Assessed At Rest Pain Present Pain Present Pain Reported Location l knee Intensity 7 Scale Used increase >10 with mobility Pain Behaviors Facial Grimacing,Guarding, Holding Area,Wincing Pain Management Techniques Apply Cold,Distraction, Elevation,Modification of Treatment,Re-positioning, Timing of Activity with Medications M4 PT-IP Mobility and Gait Start: 06/10/24 15:17 Freq: NEEDED Status: Active Protocol: Document 06/10/24 14:20 AB (Rec: 06/10/24 15:29 [id number]) PT-Bed Mobility Assessment Supine to Sit Supine to Sit Bedrails Sit to Supine Sit to Supine Maximum Assistance,Head of Bed Elevated,Bedrails PT-Transfer Assessment Sit to and From Stand Sit to and from Stand Maximum Assistance,2 Person Assistance,Use of Upper Extremities Equipment Transfer Assistive Device Gait Belt,Large Based Quad Cane Orthotic/Prosthetic Devices or Brace: No Comments Mobility Comments pt supine in bed and spouse in room. obtained PLOF and home set up. post-op folder provided and reviewed contents . HEP reviewed. BP in supine: 114/56 AR 65 completed heel slides prior to getting up. pt completed supine to sit min A and cues. able to sit on EOB SBA. c/o increase pain on L knee. no c/ o dizziness. BP: 124/58. completed sit to stand max A x 2 and max cues. attempted to ambulate and completed ~ 2 ft max A x 2 and max cues using FWW. (+) L knee buckling needing PT to stabilize LLE. pt able to back up to bed max A x 2. completed sit to supine max A and max cues. needed max A to elevate LLE up to the bed. positioned pt on the bed. call light and table placed within reach. caregiver training set up for tomorrow at 9 am. Gait Assessment Gait Gait Assistance Required: Maximum Assistance,2 Person Assist Distance (Feet) 2 Able to Maintain Weight Bearing Status Yes During Gait Assistive Devices Assistive Device Gait Belt,Front Wheeled Walker Orthotic/Prosthetic Devices or Brace: No Gait Deviations General Gait Pattern Antalgic,Decreased Stride Length,Decreased Feet Clearance,Step-to Gait Factors Limiting Gait Function Factors Limiting Gait Function Decreased Activity Tolerance, Decreased Strength,Difficulty Following Directions,Limited Range of Motion,Pain,Poor Balance,Poor Safety Awareness PT-Balance Assessment Sitting Balance and Reactions Static Sitting Balance Ability Normal Dynamic Sitting Balance Ability Good Standing Balance and Reactions Static Standing Balance Ability Poor Dynamic Standing Balance Ability Poor Device Used FWW M5 PT-IP Objective Assessments Start: 06/10/24 15:17 Freq: NEEDED Status: Active Protocol: Document 06/10/24 14:20 AB (Rec: 06/10/24 15:29 [id number]) Orientation Orientation/Cognition Level of Alertness Alert Orientation Name,Place,Situation Language Function Ability Hard of Hearing Safety Awareness Decreased Safety Awareness Memory Description No Deficits Noted Gross Range of Motion Lower Extremity ROM Assessment Left Impaired Impairments L knee flexion: ~ 50 deg L knee extension: ~ 20 deg less to 0 Strength Lower Extremity Strength Assessment Left Impaired Hip 3+/5 Knee 3-/5 Sensation Assessment Sensation Gross Sensation WNL Muscle Tone Muscle Tone WNL Yes M6 PT-IP Treatment Start: 06/10/24 15:17 Freq: NEEDED Status: Active Protocol: Document 06/10/24 14:20 AB (Rec: 06/10/24 15:29 [id number]) Physical Therapy Treatment Exercises Exercises Heel Slides Education Education Provided Precautions,Weight Bearing Status,Post-Op Packet,Safety M7 PT-IP Assessment and Plan Start: 06/10/24 15:17 Freq: NEEDED Status: Active Protocol: Document 06/10/24 14:20 AB (Rec: 06/10/24 15:29 [id number]) PT Summary Assessment and Plan Potential Rehabilitation Potential Fair Status of Condition at Evaluation Evolving Summary Impairments Pain,ROM,Strength,Balance, Coordination,Sensation,Tone, Cognition,Bed Mobility, Transfers,Gait,Activity Tolerance Assessment Summary pt is a 73 y/o M s/p L TKA POD 0. pt is WBAT on LLE. pt requiring max A x 2 for sit to stand and only able to take a few steps using FWW max A x 2 and max cues with (+) LLE buckling. pt with c/o increase L knee pain contributing to current level of function. caregiver training set up for tomorrow at 9 am. will continue to assess. Goals Bed Mobility Goal Independent Transfer Goal Independent,Front Wheeled Walker Gait Goal Independent,Front Wheel Walker Gait Distance 50 Other Goals improve ambulation using FWW ~ 200 ft mod I up/down 2 steps SPC+ DOCUMENT CONTROLLER CGA up/down 12 steps L rail SBA Frequency of Treatment Frequency Of Treatment Twice a Day Treatment Plan Physical Therapy Treatment Plan Bed Mobility Training,Transfer Training,Gait Training, Therapeutic Exercise,Balance Retraining,Post Op Education, Discharge Planning,Hot or Cold Pack,Neuromuscular Re-ed, Coordination Retraining,Manual Therapy Weight Bearing Status Weight Bearing Status Weight Bear as Tolerated Allowed Weight Bearing Amount (enter % LLE WBAT or #) (%) Recommendations To Nursing Amount of Assist Needed 2 Person Assist Discharge Recommendations PT Discharge Recommendations Home with 09/02 Assist Available,Home Health, Outpatient PT Transportation Needs at Discharge Private Vehicle,Wheelchair/ Cabulance
[2024-06-10] MEDS: OXYCODONE IR 10 MG TABLET PO ×2 (15:13→23:48)
--- NOTE | 2024-06-10 16:35 | PM.PN.1 ---
Subjective Subjective Interval history: Reinier had some pain during his initial physical therapy session and was only able to ambulate a short distance. Because of this we are going to keep him overnight and plan to have him ambulate tomorrow morning in anticipation of discharge tomorrow. He has intact sensory motor function distally in his foot and a clean and dry dressing. He was quite concerned about his pain levels, having seen some online videos were patients were walking without any ambulatory aids without a limp on the day of surgery and I reassured him that this is not typical. I have given him a 1 time dosage of 10 mg oxycodone about will otherwise continue with his tramadol for moderate pain and oxycodone 5 mg for severe pain. I brought an ice machine to the bedside and instructed him and his on usage, demonstrating for them how to fill up the ice chamber once the ice melt. That should remain on his surgical site for pain control. Exam Vital Signs (past 8 hours): - 06/10/24 10:11 06/10/24 10:16 06/10/24 10:21 Temperature 99.1 F Pulse Rate 62 63 63 Respiratory Rate 19 18 10 L Blood Pressure 98/48 L 92/35 L 104/51 L Pulse Oximetry 92 92 96 Oxygen Delivery Method Room Air Room Air Room Air Oxygen Flow Rate 06/10/24 10:36 06/10/24 11:11 06/10/24 11:30 Temperature 96.9 F L 96.7 F L Pulse Rate 62 64 65 Respiratory Rate 11 L 16 16 Blood Pressure 128/58 L 111/78 Pulse Oximetry 93 95 95 Oxygen Delivery Method Room Air Oxygen Flow Rate 0 06/10/24 12:00 06/10/24 13:00 06/10/24 14:00 Temperature 97.7 F 96.6 F L 97.2 F L Pulse Rate 67 68 62 Respiratory Rate 19 18 19 Blood Pressure 109/64 119/51 L 126/66 Pulse Oximetry 95 96 98 Oxygen Delivery Method Oxygen Flow Rate 0 0 0 06/10/24 14:55 Temperature Pulse Rate Respiratory Rate Blood Pressure Pulse Oximetry Oxygen Delivery Method Room Air Oxygen Flow Rate Oxygen Delivery Method Room Air Oxygen Flow Rate 0 PFSH Medical History Cardiac LV ejection fraction of 40-49% (05/13/21) History of cardioversion Encounter for pre-operative cardiovascular clearance Paroxysmal atrial fibrillation HFrEF (heart failure with reduced ejection fraction) Left knee pain Obesity Osteoarthritis of left knee GERD (gastroesophageal reflux disease) Encounter for Medicare annual wellness exam History of chronic atrial fibrillation Renal insufficiency Atrial fibrillation Well adult exam Nontraumatic type 1 superior labral qzohperq-xa-nrsvelrup (SLAP) tear of right shoulder Sprain of right shoulder Hyperlipidemia Hypertension Vision disorder Hearing loss Surgical History H/O umbilical hernia repair H/O cardiac radiofrequency ablation (08/28/21) Anesthesia History of appendectomy (~2000) History of knee surgery (~2004) Family History Father Diabetes mellitus History of heart disease Hyperlipidemia Hypertension Mother Cancer Sister History of heart disease Social History household members: spouse Smoking Status: Never smoker second hand exposure: No alcohol intake: current substance use type: marijuana Assessment & Plan Time-Based Coding :: [TOTAL MINUTES] spent with patient and on the chart (including review of chart, obtaining history, exam, reviewing outside data, placing orders, documenting exam and treatment plan, and counseling patient) on [DATE]. Quality VTE Deep Vein Thrombosis/Pulmonary Embolism Present on Admission: No
[2024-06-10] MEDS: ATORVASTATIN 20 MG TABLET 40 MG PO (20:09)
[2024-06-10] MEDS: ASPIRIN EC 81 MG TABLET PO (20:09)
[2024-06-10] MEDS: DOCUSATE 100 MG CAPSULE PO (20:09)
[2024-06-10] MEDS: lisinopriL 10 MG TABLET 2.5 MG PO (20:14)
[2024-06-10] MEDS: METOPROLOL ER 25 MG TABLET 50 MG PO (20:14)
[2024-06-10] MEDS: HYDROMORPHONE 0.5 MG INJ IV (21:53)
[2024-06-11] MEDS: OXYCODONE IR 5 MG TABLET PO ×2 (05:06→13:38)
[2024-06-11] MEDS: IBUPROFEN 600 MG TABLET PO (05:06)
[2024-06-11 06:42] LABS: Hematocrit 36.9 % (41-53); Hemoglobin 12.2 g/dL (13.5-17.5)
[2024-06-11] MEDS: ACETAMINOPHEN 325 MG TABLET 650 MG PO ×3 (08:19→17:37)
[2024-06-11] MEDS: ASPIRIN EC 81 MG TABLET PO (08:20)
[2024-06-11] MEDS: CHOLECALCIFEROL (VITAMIN D3) 1,000 UNIT TABLET 2000 UNIT PO (08:20)
[2024-06-11] MEDS: DOCUSATE 100 MG CAPSULE PO ×2 (08:20→20:21)
[2024-06-11] MEDS: TRAMADOL 50 MG TABLET PO (08:20)
--- NOTE | 2024-06-11 09:00 | PT.IPTN ---
Current Diagnoses Paroxysmal atrial fibrillation (06/10/24) Unilateral primary osteoarthritis, left knee (06/10/24) Surgery Performed Operation Date: 06/10/24 07:45 Actual Procedures p Total Knee Arthroplasty(Left) - Blair Amaya MD Physical Therapy Treatment Note M2 PT-IP Current Condition Start: 06/10/24 15:17 Freq: NEEDED Status: Active Protocol: Document 06/10/24 14:20 AB (Rec: 06/10/24 15:29 AB [id number]) Physical Therapy Current Condition Current Condition Evaluation Date 06/10/24 Treatment Diagnosis s/p L TKA; difficulty in walking Onset Date 06/10/24 M3 PT-IP Subjective Start: 06/10/24 15:17 Freq: NEEDED Status: Active Protocol: Document 06/11/24 09:32 TS (Rec: 06/11/24 09:44 TS [id number]) Subjective Physical Therapy Visit Type Type Treatment Note Visit Start Time 09:00 Visit Stop Time 09:29 Notes Spouse present Number of DIRECTOR OF ANNUAL GIVING Visits 1 Physical Therapy Visit Comments Patient Comments Pt found up with PA, PA reports pt will be staying another night. He will not be doing the stairs at home and will walk a longer distance to get into home. Pt is agreeable to PT. Therapy Pain Assessment Pain When Pain Assessed At Rest Pain Present Pain Present Pain Reported Location l knee Intensity 8 Scale Used Numeric (0 - 10) Pain Management Techniques Apply Cold,Distraction, Elevation,Modification of Treatment,Re-positioning, Timing of Activity with Medications M4 PT-IP Mobility and Gait Start: 06/10/24 15:17 Freq: NEEDED Status: Active Protocol: Document 06/11/24 09:32 TS (Rec: 06/11/24 09:44 TS [id number]) PT-Transfer Assessment Comments Mobility Comments pt ambulates with slow step to gait ~10' in the room CGA/ Michael. He requires cues for step sequencing. pt reports feeling knee will buckle. He was left back in the chair, all needs met. Gait Assessment Gait Gait Assistance Required: Contact Guard Assist,Minimum Assistance,1 Person Assist Distance (Feet) 10 Able to Maintain Weight Bearing Status Yes During Gait Assistive Devices Assistive Device Gait Belt,Front Wheeled Walker Orthotic/Prosthetic Devices or Brace: No Gait Deviations General Gait Pattern Antalgic,Decreased Stride Length,Decreased Feet Clearance,Step-to Gait Factors Limiting Gait Function Factors Limiting Gait Function Decreased Activity Tolerance, Decreased Strength,Difficulty Following Directions,Limited Range of Motion,Pain,Poor Balance,Poor Safety Awareness PT-Balance Assessment Sitting Balance and Reactions Static Sitting Balance Ability Good Dynamic Sitting Balance Ability Good Standing Balance and Reactions Static Standing Balance Ability Fair Dynamic Standing Balance Ability Fair Device Used FWW M5 PT-IP Objective Assessments Start: 06/10/24 15:17 Freq: NEEDED Status: Active Protocol: Document 06/10/24 14:20 AB (Rec: 06/10/24 15:29 AB [id number]) Orientation Orientation/Cognition Level of Alertness Alert Orientation Name,Place,Situation Language Function Ability Hard of Hearing Safety Awareness Decreased Safety Awareness Memory Description No Deficits Noted Gross Range of Motion Lower Extremity ROM Assessment Left Impaired Impairments L knee flexion: ~ 50 deg L knee extension: ~ 20 deg less to 0 Strength Lower Extremity Strength Assessment Left Impaired Hip 3+/5 Knee 3-/5 Sensation Assessment Sensation Gross Sensation WNL Muscle Tone Muscle Tone WNL Yes M6 PT-IP Treatment Start: 06/10/24 15:17 Freq: NEEDED Status: Active Protocol: Document 06/11/24 09:32 TS (Rec: 06/11/24 09:44 TS [id number]) Physical Therapy Treatment Education Education Provided Precautions,Weight Bearing Status,Post-Op Packet,Safety M7 PT-IP Assessment and Plan Start: 06/10/24 15:17 Freq: NEEDED Status: Active Protocol: Document 06/11/24 09:32 TS (Rec: 06/11/24 09:44 TS [id number]) PT Summary Assessment and Plan Potential Rehabilitation Potential Fair Summary Impairments Pain,ROM,Strength,Balance, Coordination,Sensation,Tone, Cognition,Bed Mobility, Transfers,Gait,Activity Tolerance Progress Towards Goals Slow Progress due to Pain,Slow Progress due to Activity Tolerance Assessment Summary Pt is limited in his mobility by pain and weakness in LLE. He ambulates a short distance in the room ~10 CGA/Michael with FWW. He reports that his LLE feels like it could buckle but does not. He is frustrated about his progress so far. Pt is going to walk a longer distance to get into house ~30 '? than going up the x2 stairs . Stairs could be difficult for pt at this time and they also do not have any rails. Spouse was present during session. PT is recommending home with 24/7 assist. Goals Bed Mobility Goal Independent Transfer Goal Independent,Front Wheeled Walker Gait Goal Independent,Front Wheel Walker Gait Distance 50 Other Goals improve ambulation using FWW ~ 200 ft mod I up/down 2 steps SPC+ HOOK UP DRIVER CGA up/down 12 steps L rail SBA Frequency of Treatment Frequency Of Treatment Twice a Day Treatment Plan Physical Therapy Treatment Plan Bed Mobility Training,Transfer Training,Gait Training, Therapeutic Exercise,Balance Retraining,Post Op Education, Discharge Planning,Hot or Cold Pack,Neuromuscular Re-ed, Coordination Retraining,Manual Therapy Weight Bearing Status Weight Bearing Status Weight Bear as Tolerated Allowed Weight Bearing Amount (enter % LLE WBAT or #) (%) Recommendations To Nursing Amount of Assist Needed 2 Person Assist Discharge Recommendations PT Discharge Recommendations Home with 24/7 Assist Available,Home Health, Outpatient PT Transportation Needs at Discharge Private Vehicle,Wheelchair/ Cabulance
--- NOTE | 2024-06-11 09:09 | PM.PNPO.1 ---
Subjective Subjective Date Patient Seen: 06/11/24 Time Patient Seen: 09:09 Interval history: Pt sitting up in chair, having very severe pain, has not been active because of this. Exam Vital Signs (past 8 hours): Oxygen Delivery Method Room Air Oxygen Flow Rate 0 Narrative Exam Narrative: 3/5 quadriceps, 4/5 hip flexors, hamstrings, PF, DF, EHL on left. Sensation to light touch intact throughout LLE, calf soft and compressible. DOMONIQUE over RAMONA is CDI. Objective Labs 06/11/24 05:40 Labs: Laboratory Results - last 24 hr 06/11/24 05:40 Hgb 12.2 L Hct 36.9 L PFSH Medical History Cardiac LV ejection fraction of 40-49% (05/13/21) History of cardioversion Encounter for pre-operative cardiovascular clearance Paroxysmal atrial fibrillation HFrEF (heart failure with reduced ejection fraction) Left knee pain Obesity Osteoarthritis of left knee GERD (gastroesophageal reflux disease) Encounter for Medicare annual wellness exam History of chronic atrial fibrillation Renal insufficiency Atrial fibrillation Well adult exam Nontraumatic type 1 superior labral lrjgrmcw-mk-qfqmomwyv (SLAP) tear of right shoulder Sprain of right shoulder Hyperlipidemia Hypertension Vision disorder Hearing loss Surgical History (Updated 06/11/24 @ 09:09 by Latonia Wasserman PA-C) H/O umbilical hernia repair H/O cardiac radiofrequency ablation (08/28/21) Anesthesia History of appendectomy (~2000) History of knee surgery (~2004) Family History Father Diabetes mellitus History of heart disease Hyperlipidemia Hypertension Mother Cancer Sister History of heart disease Social History household members: spouse Smoking Status: Never smoker second hand exposure: No alcohol intake: current substance use type: marijuana Assessment & Plan Post-op Assessment and plan (1) Total knee replacement status: Assessment and Plan narrative: Significant issues w/ pain control overnight. It appears that until Dr Pandya was called around 2100 last night, pt only had APAP, IBPN, and a small amt of Tramadol ordered. Dr Pandya added oxycodone 5mg for moderate pain, oxycodone 10mg for severe pain, and hydrocodone IV PRN for severe pain. I will add methocarbamol. Pain is keeping him from full participation with PT. Goals today will be pain control and progress enough with PT that he can discharge home safely and comfortably tomorrow. He has 2 steps to get into his house from his garage. Ericka restarted today for VTE prophylaxis. Postoperative Procedures: Procedures Operation Date: 06/10/24 07:45 Actual Procedure Side Surgeon p Total Knee Arthroplasty Left Blair Amaya MD Postoperative day: 1 Quality VTE Deep Vein Thrombosis/Pulmonary Embolism Present on Admission: No
[2024-06-11] MEDS: methocarbamoL 500 MG TABLET 750 MG PO ×4 (09:43→20:16)
[2024-06-11] MEDS: APIXABAN 5 MG TABLET PO ×2 (09:44→20:21)
[2024-06-11] MEDS: OXYCODONE IR 10 MG TABLET PO ×3 (09:44→22:21)
--- NOTE | 2024-06-11 12:33 | PT.IPTN ---
Current Diagnoses Paroxysmal atrial fibrillation (06/10/24) Unilateral primary osteoarthritis, left knee (06/10/24) Presence of unspecified artificial knee joint (06/10/24) Surgery Performed Operation Date: 06/10/24 07:45 Actual Procedures p Total Knee Arthroplasty(Left) - Blair Amaya MD Physical Therapy Treatment Note M2 PT-IP Current Condition Start: 06/10/24 15:17 Freq: NEEDED Status: Active Protocol: Document 06/10/24 14:20 AB (Rec: 06/10/24 15:29 AB [id number]) Physical Therapy Current Condition Current Condition Evaluation Date 06/10/24 Treatment Diagnosis s/p L TKA; difficulty in walking Onset Date 06/10/24 M3 PT-IP Subjective Start: 06/10/24 15:17 Freq: NEEDED Status: Active Protocol: Document 06/11/24 14:13 TS (Rec: 06/11/24 14:28 TS [id number]) Subjective Physical Therapy Visit Type Type Treatment Note Visit Start Time 12:33 Visit Stop Time 13:05 Number of FRAME FIXER Visits 2 Physical Therapy Visit Comments Patient Comments Pt found resting in chair, reports pain is much better this afternoon. He is agreeable to PT. Therapy Pain Assessment Pain When Pain Assessed During Mobility Pain Present Pain Present Pain Reported M4 PT-IP Mobility and Gait Start: 06/10/24 15:17 Freq: NEEDED Status: Active Protocol: Document 06/11/24 14:13 TS (Rec: 06/11/24 14:28 TS [id number]) PT-Transfer Assessment Sit to and From Stand Sit to and from Stand Minimal Assistance,1 Person Assistance,Use of Upper Extremities Equipment Transfer Assistive Device Gait Belt,Front Wheeled Walker Orthotic/Prosthetic Devices or Brace: No Comments Mobility Comments STS with FWW Michael, cues provided for pushing from arms the chair. Pt ambulates in the room ~30'CGA with FWW and a slow stpe to gait. pt reports feeling his Le might buckle. Pt ambulates back to the chair. Pt requests to use toilet. STS from the chair Michael. Pt stands with urinal and UE support on FWW. Pt at back in chair, was left with all needs met. Gait Assessment Gait Gait Assistance Required: Contact Guard Assist,Minimum Assistance,1 Person Assist Distance (Feet) 30 Able to Maintain Weight Bearing Status Yes During Gait Assistive Devices Assistive Device Gait Belt,Front Wheeled Walker Orthotic/Prosthetic Devices or Brace: No Gait Deviations General Gait Pattern Antalgic,Decreased Stride Length,Decreased Feet Clearance,Step-to Gait Factors Limiting Gait Function Factors Limiting Gait Function Decreased Activity Tolerance, Decreased Strength,Difficulty Following Directions,Limited Range of Motion,Pain,Poor Balance,Poor Safety Awareness Stair Climbing Assessment Comments Stair Climbing Comments Planning on not doing steps and taking a longer walk to back of house. PT-Balance Assessment Sitting Balance and Reactions Static Sitting Balance Ability Good Dynamic Sitting Balance Ability Good Standing Balance and Reactions Static Standing Balance Ability Fair Dynamic Standing Balance Ability Fair Device Used FWW M5 PT-IP Objective Assessments Start: 06/10/24 15:17 Freq: NEEDED Status: Active Protocol: Document 06/10/24 14:20 AB (Rec: 06/10/24 15:29 AB [id number]) Orientation Orientation/Cognition Level of Alertness Alert Orientation Name,Place,Situation Language Function Ability Hard of Hearing Safety Awareness Decreased Safety Awareness Memory Description No Deficits Noted Gross Range of Motion Lower Extremity ROM Assessment Left Impaired Impairments L knee flexion: ~ 50 deg L knee extension: ~ 20 deg less to 0 Strength Lower Extremity Strength Assessment Left Impaired Hip 3+/5 Knee 3-/5 Sensation Assessment Sensation Gross Sensation WNL Muscle Tone Muscle Tone WNL Yes M6 PT-IP Treatment Start: 06/10/24 15:17 Freq: NEEDED Status: Active Protocol: Document 06/11/24 14:13 TS (Rec: 06/11/24 14:28 TS [id number]) Physical Therapy Treatment Education Education Provided Precautions,Weight Bearing Status,Post-Op Packet,Safety M7 PT-IP Assessment and Plan Start: 06/10/24 15:17 Freq: NEEDED Status: Active Protocol: Document 06/11/24 14:13 TS (Rec: 06/11/24 14:28 TS [id number]) PT Summary Assessment and Plan Potential Rehabilitation Potential Fair Summary Impairments Pain,ROM,Strength,Balance, Coordination,Sensation,Tone, Cognition,Bed Mobility, Transfers,Gait,Activity Tolerance Progress Towards Goals Progressing Toward Goals Assessment Summary Pt made some progress with his mobility. He progressed his gait to ~30'CGA with FWW. He has much less pain this afternoon with ambulation. Pt continues to report his LLE feels it may buckle but there are no signs of that. He is feeling more confident wbering on his LLE this session. PT is recommending home with assist and outpatient PT. Goals Bed Mobility Goal Independent Transfer Goal Independent,Front Wheeled Walker Gait Goal Independent,Front Wheel Walker Gait Distance 50 Other Goals improve ambulation using FWW ~ 200 ft mod I up/down 2 steps SPC+ PERSONAL SUPPORT WORKER CGA up/down 12 steps L rail SBA Frequency of Treatment Frequency Of Treatment Twice a Day Treatment Plan Physical Therapy Treatment Plan Bed Mobility Training,Transfer Training,Gait Training, Therapeutic Exercise,Balance Retraining,Post Op Education, Discharge Planning,Hot or Cold Pack,Neuromuscular Re-ed, Coordination Retraining,Manual Therapy Weight Bearing Status Weight Bearing Status Weight Bear as Tolerated Allowed Weight Bearing Amount (enter % LLE WBAT or #) (%) Recommendations To Nursing Amount of Assist Needed 2 Person Assist Discharge Recommendations PT Discharge Recommendations Home with Assistance, Outpatient PT Transportation Needs at Discharge Private Vehicle
--- NOTE | 2024-06-11 12:33 | CM.DANOTE ---
Patient is a 73 yo M admitted for TKA and is experiencing a lot of pain post op, will be staying one more night. Spoke with patient and spouse at bedside and patient states he has outpatient PT arranged but there is some concern for his ability to transfer to car and [facility] was considered, patient agreeable and provided choices. Patient would like [facility] at d/c for PT and will transition to outpatient PT when able. Referral sent and F2F signed. No other needs expressed or identified at this time. Rose HALL Discharge Planning/Care Management CM Discharge Assessment Start: 06/11/24 12:31 Freq: Status: Active Protocol: Document 06/11/24 12:31 KG (Rec: 06/11/24 12:32 KG [id number]) Discharge Planning Assessment Assigned Instructional Technology Coach Rose French Advance Directives? Yes Advance Directives on File No History Provided By Patient,Medical Record Expected Length of Stay 1 Has Patient been admitted in last 30 No days? Prior Living Arrangements House Household Members spouse Type of transporation used prior to Drives own vehicle admit Independent with ADL's Yes Is patient alert and oriented? Yes Caregiver for Another No Patient/Family Preference Home with Home Health Barriers to Discharge No Discharge Plan Home with Home Health Referrals Initiated Home Health If patient plan is home with home health Yes : Has signed face to face form been completed? Pre-Anesthesia Assessment Start: 05/30/24 09:08 Freq: Status: Complete Protocol: Document 05/30/24 09:08 LB (Rec: 05/30/24 09:38 LB [id number]) Pre-Anesthesia Assessment PAC Comment 05/30/24 Phone assessment. Preferred Name Bill Patient Information Reviewed Via Phone Assessment Assessment Completed With Patient Diagnostic Results BMP/CMP,CBC,EKG,Urinalysis Comment 04/26/24 at . EKG . Currently in [facility]. Primary Care Provider Adalberto Underwood Medical Clearance Received Yes Seen Specialist in Last 12 Months Yes Specialist Seen Director Of Strategy & Mobile,Orthopedist Primary Language [place] Preferred Language [place] Farm Agent Required No Height 187.96 cm Weight 136.078 kg Body Mass Index (BMI) 38.5 Hearing Ability Normal Visual Impairment No Limitations Dentition Type Teeth, Natural Present Barriers to Learning None Comment [place]. Hx Anesthesia Reactions No Hx Family Anesthesia Reaction No Hx Malignant Hyperthermia No Hx Blood Transfusions No Anesthesia Review Requested No Record Filing Clerk No alcohol intake current alcohol intake frequency a few times a week Smoking Status Never smoker Substance Use Type marijuana Pain Present Pain Reported Comment Left knee. Musculoskeletal Symptoms Difficulty Walking,Joint Pain History of Falling (Recent or History of No ) Patient is completely paralyzed or No completely immobile Mental Status Oriented to own ability Comment Will bring walker. Is patient on oxygen? No Does patient have HUANG/SOB No Hx Sleep Apnea No Currently Taking a Beta Daisy Yes: Metoprolol 50mg qhs. Can You Climb a Flight of Stairs Without Yes SOB Hx Chest Pain No Hx SOB Yes: With a fib. Anti-Coagulant Therapy Yes: Eliquis 5mg BID. Advised to hold 72 hours preop by surgeon. (Per Dr Haas) Has a Director Of Strategy & Mobile Yes Director Of Strategy & Mobile name Dr Haas Cardiac Testing Yes: Echo 05/13/21 Hx Pacemaker/ICD No Cardiac Clearance Received Yes Bladder Pattern Nocturia Urinary Catheter Present No Hx Urinary Self Catheterization No Diabetes No HgbA1C 5.9 Date 03/04/24 Hx Drug Resistant Organism No Presence of External or Internal Medical Yes: ? hernia mesh. Devices Have you had any close contact with No someone diagnosed with COVID-19? Received a COVID vaccine? Yes Comment Denies covid last 2 months. Marital Status Lives With spouse Current Living Arrangements House Number of Floors (Floors) Two Floors Number of Stairs To Enter/Railing? 1 stair to enter, 12 stairs with railing to bedroom. Support System Spouse Does the Patient Have Assistance After Yes Surgery Patient Discharge Plan Description Return Home Additional comment Advised overnight LOS. Feels Safe in Current Environment Yes Do you have a plan to hurt yourself or No Plan others? Emergency Contact Name Marleni Rose - Emergency Contact Advance Directives? No PAC Instructions Assistance for 24 hours post- op,Do not shave/clip surgical site,Durable medical equipment ,Medications to take/avoid,No ETOH/petroleum product on skin DOS,NPO,Post-op transportation,Pre-surgical wash,Sturdy shoes/comfortable clothes,Do not bring valuables and remove jewelry
[2024-06-11 16:00] VITALS: BP 116/57; PULSE 70; RESP 16; TEMP 36.3; O2SAT 95
[2024-06-11 20:00] VITALS: BP 126/57; PULSE 78; RESP 19; TEMP 37.2; O2SAT 99
[2024-06-11 20:17] VITALS: BP 126/57; PULSE 75
[2024-06-11] MEDS: METOPROLOL ER 25 MG TABLET 50 MG PO (20:17)
[2024-06-11] MEDS: lisinopriL 10 MG TABLET 2.5 MG PO (20:19)
[2024-06-11] MEDS: ATORVASTATIN 20 MG TABLET 40 MG PO (20:21)
[2024-06-11 22:32] VITALS: PULSE 81
[2024-06-12] MEDS: ACETAMINOPHEN 325 MG TABLET 650 MG PO ×2 (00:54→06:33)
[2024-06-12] MEDS: OXYCODONE IR 5 MG TABLET PO (02:30)
[2024-06-12] MEDS: OXYCODONE IR 10 MG TABLET PO ×2 (06:33→10:07)
[2024-06-12 08:00] VITALS: BP 97/52; PULSE 70; RESP 18; TEMP 36.7; O2SAT 91
--- NOTE | 2024-06-12 09:00 | PT.IPTN ---
Current Diagnoses Paroxysmal atrial fibrillation (06/10/24) Unilateral primary osteoarthritis, left knee (06/10/24) Presence of unspecified artificial knee joint (06/10/24) Surgery Performed Operation Date: 06/10/24 07:45 Actual Procedures p Total Knee Arthroplasty(Left) - Blair Amaya MD Physical Therapy Treatment Note M2 PT-IP Current Condition Start: 06/10/24 15:17 Freq: NEEDED Status: Active Protocol: Document 06/10/24 14:20 AB (Rec: 06/10/24 15:29 AB [id number]) Physical Therapy Current Condition Current Condition Evaluation Date 06/10/24 Treatment Diagnosis s/p L TKA; difficulty in walking Onset Date 06/10/24 M3 PT-IP Subjective Start: 06/10/24 15:17 Freq: NEEDED Status: Active Protocol: Document 06/12/24 08:30 MB (Rec: 06/12/24 09:00 MB [id number]) Subjective Physical Therapy Visit Type Type Treatment Note Visit Start Time 08:30 Visit Stop Time 08:50 Number of SUPERINTENDENT JOB Visits 0 Physical Therapy Visit Comments Patient Comments Pt sitting up in chair. He has concerns about pain management and quad not firing . He thinks he did it too much with HS yesterday after PT. Therapy Pain Assessment Pain When Pain Assessed During Mobility Pain Present Pain Present Pain Reported Location l knee Intensity 7 M4 PT-IP Mobility and Gait Start: 06/10/24 15:17 Freq: NEEDED Status: Active Protocol: Document 06/12/24 08:30 MB (Rec: 06/12/24 09:00 MB [id number]) PT-Transfer Assessment Sit to and From Stand Sit to and from Stand Contact Guard Assistance,1 Person Assistance,Use of Upper Extremities Equipment Transfer Assistive Device Gait Belt,Front Wheeled Walker Orthotic/Prosthetic Devices or Brace: No Transfers Transfer Destination Chair Transfer Technique Ambulation Transfer Ability Level of Assist Contact Guard Assistance,1 Person Assistance,Use of Upper Extremities Comments Mobility Comments PT must lift left leg off the pillow and pt does not demonstrate ability to engage quad or assist with lifting or lowering leg x2. Cues for stepping, reaching back for chair and easing leg out for STS. Gait Assessment Gait Gait Assistance Required: Contact Guard Assist,Minimum Assistance,1 Person Assist Distance (Feet) 30 Able to Maintain Weight Bearing Status Yes During Gait Assistive Devices Assistive Device Gait Belt,Front Wheeled Walker Orthotic/Prosthetic Devices or Brace: No Gait Deviations General Gait Pattern Antalgic,Decreased Stride Length,Decreased Feet Clearance,Step-to Gait Factors Limiting Gait Function Factors Limiting Gait Function Decreased Activity Tolerance, Decreased Strength, Incoordination,Limited Range of Motion,Pain,Poor Balance Comments Gait Comments Instructed pt in keeping feet inside LYNDA of walker and step- to gait at this time d/t LLE instability/decreased extensor control and practiced several feet of retropulsion as well Stair Climbing Assessment Comments Stair Climbing Comments Planning on not doing steps and taking a longer walk to back of house. PT-Balance Assessment Sitting Balance and Reactions Static Sitting Balance Ability Good Dynamic Sitting Balance Ability Good Standing Balance and Reactions Static Standing Balance Ability Fair Dynamic Standing Balance Ability Fair Device Used FWW M5 PT-IP Objective Assessments Start: 06/10/24 15:17 Freq: NEEDED Status: Active Protocol: Document 06/10/24 14:20 AB (Rec: 06/10/24 15:29 AB [id number]) Orientation Orientation/Cognition Level of Alertness Alert Orientation Name,Place,Situation Language Function Ability Hard of Hearing Safety Awareness Decreased Safety Awareness Memory Description No Deficits Noted Gross Range of Motion Lower Extremity ROM Assessment Left Impaired Impairments L knee flexion: ~ 50 deg L knee extension: ~ 20 deg less to 0 Strength Lower Extremity Strength Assessment Left Impaired Hip 3+/5 Knee 3-/5 Sensation Assessment Sensation Gross Sensation WNL Muscle Tone Muscle Tone WNL Yes M6 PT-IP Treatment Start: 06/10/24 15:17 Freq: NEEDED Status: Active Protocol: Document 06/12/24 08:30 MB (Rec: 06/12/24 09:00 MB [id number]) Physical Therapy Treatment Education Education Provided Safety M7 PT-IP Assessment and Plan Start: 06/10/24 15:17 Freq: NEEDED Status: Active Protocol: Document 06/12/24 08:30 MB (Rec: 06/12/24 09:00 MB [id number]) PT Summary Assessment and Plan Potential Rehabilitation Potential Fair Status of Condition at Evaluation Evolving Summary Impairments Pain,ROM,Strength,Balance, Coordination,Bed Mobility, Transfers,Gait,Activity Tolerance Progress Towards Goals Slow Progress - Other Assessment Summary Sohan con't to demonstrate no active quad engagement and his LLE is unstable with standing and gait. He requires max to total assistance to lift and position left leg on pillow for elevation in chair. He is concerned about bed mobility and so he plans on in sleeping in chair at home. His bed is one flight up. He will enter home where there are not steps . He will have assistance at home at d/c. Goals Bed Mobility Goal Independent Transfer Goal Independent,Front Wheeled Walker Gait Goal Independent,Front Wheel Walker Gait Distance 50 Other Goals improve ambulation using FWW ~ 200 ft mod I up/down 2 steps SPC+ DEEP FAT FRY COOK CGA up/down 12 steps L rail SBA Frequency of Treatment Frequency Of Treatment Once a Day Treatment Plan Physical Therapy Treatment Plan Bed Mobility Training,Transfer Training,Gait Training, Therapeutic Exercise,Balance Retraining,Post Op Education, Discharge Planning,Hot or Cold Pack,Neuromuscular Re-ed, Coordination Retraining,Manual Therapy Weight Bearing Status Weight Bearing Status Weight Bear as Tolerated Allowed Weight Bearing Amount (enter % LLE WBAT or #) (%) Recommendations To Nursing Amount of Assist Needed 1 Person Assist Discharge Recommendations PT Discharge Recommendations Home with Assistance, Outpatient PT Transportation Needs at Discharge Private Vehicle
--- NOTE | 2024-06-12 09:00 | PM.DS.1 ---
History of Present Illness History of Present Illness Date Patient Seen: 06/12/24 Time Patient Seen: 09:01 Chief complaint: Left TKA *OPB* Narrative: Operative Date/Time/Diagnoses Date of procedure: 06/10/24 Pre-op diagnosis: Left knee osteoarthritis Post-op diagnosis: same Procedure & Clinicians Procedure: Left total knee arthroplasty Same procedure as scheduled: Yes Surgeon: Blair Amaya Human Resources Intern: Latonia Wasserman Anesthesia Type: Spinal, Sedation, Peripheral nerve block and Local Operative Notes Estimated Blood Loss (mL): 150 Tourniquet time (min): 60 Procedure in detail: Left Gap-Balanced Sotero Persona Medial-Congruent Primary Total Knee Arthroplasty Implants: Size 11 PPS Cruciate Retaining Femoral Component Size H OsseoTi Tibial Component Size 12 Medial Congruent Polyethylene Insert Unresurfaced Patella Discharge Providers Provider Discharge Date: 06/12/24 Primary care physician: Maurilio Salazar DO Consults: 06/10/24 06:00 Consult to Anesthesiology Routine Comment: Consulting Provider: Anesthesiologist Reason for consultation: Regional block for post operative pain control Has provider been notified: No 06/10/24 10:55 Consult to Discharge Planning Routine Comment: Consult to Physical Therapy Evaluate & Treat Comment: Physician Instructions: postop TKA protocol Discharge provider: Latonia Wasserman PA-C Summary Hospital Course Discharge Diagnosis: Left knee osteoarthritis, s/p left total knee arthroplasty Hospital Course: Mr Rose's hospital course was remarkable for difficulty with pain control and participation w/ PT. Meds were adjusted on POD# 1. On the morning of POD# 2, he was still feeling as though his quadriceps were not fully engaging when he walked, but he also wanted to be standing and walking more frequently, which was not happening in the hospital. He wanted to go home with the help of his and his son. He was eating and voiding without difficulty. He hadn't had a bowel movement in 3 days, but he does have stool softener at home. Exam Vital Signs (past 8 hours): - 06/12/24 08:00 Temperature 98.1 F Pulse Rate 70 Respiratory Rate 18 Blood Pressure 97/52 L Pulse Oximetry 91 Oxygen Flow Rate 0 Oxygen Delivery Method Room Air Oxygen Flow Rate 0 Narrative Exam Narrative: 4/5 hip flexors, hamstrings; 3/5 quadriceps; 5/5 PF, DF, EHL on left. Sensation to light touch intact throughout LLE. Calf soft and compressible. DOMONIQUE over RAMONA CDI, RAMONA functioning. Objective Labs 06/11/24 05:40 [facility] Medical History Cardiac LV ejection fraction of 40-49% (05/13/21) History of cardioversion Encounter for pre-operative cardiovascular clearance Paroxysmal atrial fibrillation HFrEF (heart failure with reduced ejection fraction) Left knee pain Obesity Osteoarthritis of left knee GERD (gastroesophageal reflux disease) Encounter for Medicare annual wellness exam History of chronic atrial fibrillation Renal insufficiency Atrial fibrillation Well adult exam Nontraumatic type 1 superior labral [id number]-[id number] (SLAP) tear of right shoulder Sprain of right shoulder Hyperlipidemia Hypertension Vision disorder Hearing loss Surgical History (Updated 06/11/24 @ 09:09 by Latonia Wasserman PA-C) H/O umbilical hernia repair H/O cardiac radiofrequency ablation (08/28/21) Anesthesia History of appendectomy (~2000) History of knee surgery (~2004) Family History Father Diabetes mellitus History of heart disease Hyperlipidemia Hypertension Mother Cancer Sister History of heart disease Social History household members: spouse Smoking Status: Never smoker second hand exposure: No alcohol intake: current substance use type: marijuana Discharge Assessment & Plan Assessment and Plan Assessment: Left knee osteoarthritis, s/p left total knee arthroplasty Plan of Treatment: Discharge home, outpt PT, Eliquis for VTE prophylaxis, multimodal pain control, f/u in office as scheduled. Discharge Plan Discharge Plan Patient Disposition: Home Discharge orders & Medications Discharge Orders: Discharge (Order); Ordered 06/12/24 Ordered By: Latonia Wasserman Prescriptions: New oxycodone 10 mg Tablet 10 mg PO Q4HR PRN (Reason: Pain, Severe (7-10)) Qty: 40 0RF methocarbamol 500 mg Tablet 750 mg PO QID PRN (Reason: muscle spasm) Qty: 120 0RF Continued (DME) Disabled Parking Permint See Rx Instructions .ROUTE .MEDSUPPLY Qty: 1 0RF Rx Instructions: I find this patient to be medically disabled and qualified for Disabled Parking as indicated and signed on the Accompanying Disabled Parking Application for individuals. metoprolol succinate 25 mg tablet extended release 24 hr 50 mg PO .QHS apixaban 5 mg tablet 5 mg PO BID atorvastatin 40 mg tablet 40 mg PO QPM spironolactone 25 mg tablet 12.5 mg PO QAM Rx Instructions: Take 0.5mg tabs 12.5 mg total PO daily cholecalciferol (vitamin D3) 50 mcg (2,000 unit) capsule 100 mcg PO QAM lisinopril 10 mg tablet 2.5 mg PO QPM Follow up/Referrals: Maurilio Salazar DO [Primary Care Provider] - Blair Amaya MD [Physician] - 06/24/24 3:30 pm (Follow up w/ Humble Roberson PA-C, at [employer] office in [place].) Diet/Activity/Treatments Diet: Diet as Tolerated Activity: Weightbearing as tolerated. Walk frequently! Cold/Heat Therapy: Ice to knee as needed for pain. Skin/Wound/Dressing Care Report to your healthcare provider any signs of infection, such as:: chills, fever, night sweats, unusual drainage and unusual redness Dressing: May remove DOMONIQUE wrap and cotton padding and shower on 06/12/2024. Leave dressing in place until follow up in office. In 5-7 days, batteries will , at which point you can cut off the battery pack and dispose of it, but leave the dressing on. No bathing or otherwise soaking incision. Call the office if the dressing becomes saturated inside. Visit Report/Discharge Packet Instructions: DI for Knee Replacement Stand Alone Forms: Patient Portal/API, Surgery Discharge Discharge Data Primary Care Provider: Maurilio Salazar Attending Provider: Blair Amaya Quality VTE Deep Vein Thrombosis/Pulmonary Embolism Present on Admission: No
[2024-06-12] MEDS: methocarbamoL 500 MG TABLET 750 MG PO (09:20)
[2024-06-12] MEDS: APIXABAN 5 MG TABLET PO (09:20)
[2024-06-12] MEDS: CHOLECALCIFEROL (VITAMIN D3) 1,000 UNIT TABLET 2000 UNIT PO (09:20)
[2024-06-12] MEDS: DOCUSATE 100 MG CAPSULE PO (09:20)
--- NOTE | 2024-06-12 12:12 | CM.DPNOTE ---
DC Note Patient has been discharged. Met w/patient, sp and family to review discharge plan. Patient remains agreeable to [facility]. Emailed Denisha at [facility] patient's facesheet, clinical, F2F and HH order. [facility] is not available in [place] until 06/23. Spoke with Hoa at [facility] who anticipates HH PT availability this week. [facility] everything listed [email or web address]. Awaiting confirmation of receipt. Plan: Discharge home w/family to assist, HH- likely [facility] . JW
== END 2024-06-12 10:35 | disposition home or self-care (01) ==
LOC: OR 06:03 → AC 06:04
PROVIDERS: PCP Family Medicine; Referring Provider Orthopaedic Surgery Adult Reconstructive Orthopaedic Surgery; Visit Provider Orthopaedic Surgery Adult Reconstructive Orthopaedic Surgery
PROC: 0SRD0JZ Replacement of Left Knee Joint with Synthetic Substitute, Open Approach (ICD-10-PCS; CPT 27447; principal; 2024-06-10 07:45)
DX: M17.12 Unilateral primary osteoarthritis, left knee (principal); M21.162 Varus deformity, not elsewhere classified, left knee; I48.0 Paroxysmal atrial fibrillation; E66.9 Obesity, unspecified; Z68.41 Body mass index [BMI] 40.0-44.9, adult; M25.762 Osteophyte, left knee
CPT/HCPCS: 27447; 36415; 73560; 85014; 85018; 97116; 97162; 97530; C1776; J0690; J1171; J2250; J2405; J2704

== ENCOUNTER → 2024-08-25 07:32 | Outpatient (CLI) | payer MEDICARE, SELFPAY ==
[2024-06-10 12:08] VITALS: BMI 42.7
--- NOTE | 2024-08-25 07:33 | DI.ECHO.S_ITS ---
[facility]+ [facility] : : [address] : [place] : : [id number] : : Phone: [phone] Echocardiogram Report + + :Name: BOBBY SHAW Study Date: 08/25/2024 Height: 74 in : :[facility] ReadingLocation: Weight: 300 lb : : Gender: Male BSA: 2.6 m2 : :: 1950 Age: 73 yrs BP: 151/79 mmHg: :Reason For Study: SYSTOLIC HEART FAILURE : :Ordering Physician: TONA, : :KERLINE Performed By: Danny Mckeon : :Referring: KERLINE HAAS : + + Interpretation Summary 1) Mildly enlarged left ventricle with low normal systolic function (EF 50- 55%). 2) Mildly enlarged right ventricle with normal function. 3) No significant valvular abnormalities. 4) Compared to the Echo done 05/13/2021, no significant change. Procedure: A two-dimensional transthoracic echocardiogram with color flow and Doppler was performed. The study quality was technically adequate. Comparison is made with the echocardiogram of 05/13/2021. The patient was in normal sinus rhythm during the exam. Left Ventricle: The left ventricle is mildly dilated. Left ventricular wall thickness is mildly increased. There is no ventricular septal defect visualized. The ejection fraction is estimated to be 50-55%. There are no focal wall motion abnormalities. Diastolic parameters suggest a relaxation abnormality of the left ventricle, consistent with probable normal filling pressures. Right Ventricle: The right ventricle is mildly dilated. The right ventricular systolic function is normal. Atria: The left atrial size is normal. Right atrial size is normal. There is no Doppler evidence for an interatrial shunt. Mitral Valve: There is mild mitral annular calcification. There is trace mitral regurgitation. Aortic Valve: The aortic valve is trileaflet. The aortic valve is mildly calcified. There is no aortic valve stenosis. No aortic regurgitation is present. Tricuspid Valve: The tricuspid valve leaflets are thin and pliable. No tricuspid regurgitation. Pulmonic Valve: The pulmonic valve is normal in structure and function. There is no pulmonic valvular regurgitation. Great Vessels: The aortic root is borderline dilated. The ascending aorta is normal in size. The pulmonary artery is normal size. The IVC is of normal diameter and collapses greater than 50% with a sniff. This suggests a low right atrial pressure of 3 mm Hg. Pericardium/ Pleura There is no pericardial effusion. There is no pleural effusion. MMode/2D Measurements & Calculations LVIDd: 6.0 cm LVOT diam: 2.3 cm LVIDs: 4.3 cm Ao root diam: 3.7 cm FS: 27.7 % asc Aorta Diam: 3.8 cm EPSS: 0.86 cm Ao Arch Diam (Prox Trans): 2.7 cm IVSd: 1.3 cm LVPWd: 1.1 cm LV frias. diameter/BSA (cm/m^2): 2.3 LV sys. diameter/BSA (cm/m^2): 1.7 LA A2 area: 23.1 cm2 RA long axis: 5.5 cm LA A4 area: 24.1 cm2 RA area: 18.5 cm2 LA length (vol): 7.0 cm RA vol: 53.2 ml LA vol: 67.0 ml RA : 20.6 ml/m2 LA vol index: 26.0 ml/m2 IVC diam: 2.2 cm RVD1 (basal): 4.7 cm RVD2 (mid): 3.7 cm TAPSE: 2.5 cm Doppler Measurements & Calculations Ao V2 max: 163.0 cm/sec LVOT Max Robb: 110.1 cm/sec Ao V2 mean: 116.9 cm/sec LV V1 max P.9 mmHg Ao max P.6 mmHg LV V1 VTI: 25.8 cm Ao mean P.1 mmHg DAREN(I,D): 3.3 cm2 Ao V2 VTI: 32.5 cm DAREN(V,D): 2.8 cm2 sev ratio: 0.79 DAREN indexed to BSA (cm^2/m^2): 1.3 MV E max robb: 54.7 cm/sec PA V2 max: 102.6 cm/sec MV A max robb: 74.2 cm/sec PA V2 mean: 63.4 cm/sec MV E/A: 0.74 PA mean P.0 mmHg Med Peak E' Robb: 4.6 cm/sec PA pr(Accel): 22.5 mmHg E/E' med: 11.8 Lat Peak E' Robb: 8.8 cm/sec E/E' lat: 6.2 E/e' average: 9.0 MV dec time: 0.29 sec SV(LVOT): 108.0 ml Reading Physician:02:13 PM
== END ==
LOC: ECHO 07:32
PROVIDERS: PCP Family Medicine; Referring Provider Internal Medicine Cardiovascular Disease; Visit Provider Internal Medicine Cardiovascular Disease
DX: I34.81 Nonrheumatic mitral (valve) annulus calcification (principal); I50.22 Chronic systolic (congestive) heart failure
CPT/HCPCS: 93306